=== PATIENT | male | born 1945 | race Caucasian/White ===

== ENCOUNTER 2023-02-20 11:04 | Inpatient (IN) ==
[2023-02-20] MEDS ORDERED: IOPAMIDOL 100 ML BOTTLE IV ONE (11:05)
[2023-02-20] MEDS ORDERED: 0.9 % SODIUM CHLORIDE 1,000 ML IV ONE ×2 (11:47→22:02)
--- NOTE | 2023-02-20 11:58 | Emergency Department Note ---
Weakness HPI General Chief complaint: Weakness Stated complaint: hypotension, tachycardia, general decline, Time Seen by Provider: 02/20/23 11:12 Source: patient and EMS Mode of arrival: EMS History of Present Illness HPI Narrative: The patient is a 77-year-old male with a history of prostate cancer, malnutrition/anorexia/failure to thrive, CKD, urinary retention with a Schrader catheter who presents to the ED with hypotension and tachycardia. Patient was being seen at the surgery clinic this morning for follow-up for colonoscopy and to discuss proceeding with an EGD where he was found to have a blood pressure of 87/58 and heart rate of 116. He was sent to the emergency room via EMS for further evaluation. Patient complains of generalized weakness, especially in his legs. He reports a poor appetite. Looks like the weakness and poor appetite have been a chronic issue for the patient as of late. He was recently hospitalized at [facility] for syncope and sepsis secondary to colitis. He has been rehabilitating at [facility]. He does report a headache as well as chronic back pain and states that his stomach feels "weird." He denies any palpitations or dysuria. He continues to report brown diarrhea which he states has been present ever since his recent hospitalization for colitis. No melena. Hematochezia. No fevers. Related Data Home Medications Medication Instructions Recorded Confirmed loratadine 10 mg tablet (Claritin) 10 mg PO QDAY PRN ALLERGIES 05/01/22 02/20/23 Miralax 1 packet PO DAILY PRN Constipation 02/20/23 02/20/23 Huddy 7.5 - 325 mg PO Q8 PRN Pain 02/20/23 02/20/23 Reglan 5 mg PO TID 02/20/23 02/20/23 Tenormin 12.5 mg PO DAILY 02/20/23 02/20/23 bisacodyl 10 mg rectal suppository 10 mg [place] DAILY PRN Constipation 02/20/23 02/20/23 (Dulcolax (bisacodyl)) duloxetine 60 mg capsule,delayed 60 mg PO QDAY 02/20/23 02/20/23 release ipratropium bromide 1 spray intranasal DAILY 02/20/23 02/20/23 lisinopril 40 mg tablet 20 mg PO QDAY 02/20/23 02/20/23 mineral oil (Fleet Mineral Oil 1 ea [place] DAILY 02/20/23 02/20/23 enema) ondansetron HCl 4 mg tablet 4 mg PO Q6 02/20/23 02/20/23 potassium chloride 20 meq PO DAILY 02/20/23 02/20/23 tamsulosin 0.4 mg capsule 0.4 mg PO QDAY 02/20/23 02/20/23 Previous Rx's Medication Instructions Recorded clonazepam 0.5 mg tablet 0.5 mg PO QHS #30 tabs 12/26/22 Allergies Allergy/AdvReac Type Severity Reaction Status Date / Time olanzapine Allergy Unknown restlessnes Verified 02/20/23 14:14 s Penicillins Allergy Unknown sick Verified 02/20/23 14:14 stomach Sulfa (Sulfonamide Allergy Unknown Vomiting Verified 02/20/23 14:14 Antibiotics) Review of Systems ROS ROS Narrative: Narrative: All systems ED: reviewed and negative except as stated. (10 point ROS) PFSH Narrative Patient History Narrative: Narrative: Medical/Surgical/Family History All Active Problems (Updated 02/20/23 @ 20:07 by Jaison Nicolas MD) Colitis (Acute) ABLA (acute blood loss anemia) (Acute) Dehydration determined by examination (Acute) Orthostatic hypotension (Acute) Hypertension (Acute) Anemia in chronic kidney disease (Acute) Chronic kidney disease, stage III (moderate) (Acute) Homocystinuria (Acute) Hydronephrosis (Acute) Hypocalcemia (Acute) Obstructive nephropathy (Acute) Prostate cancer (Chronic) Renal osteodystrophy (Acute) Methicillin susceptible Staphylococcus aureus infection (Acute) Ureteric obstruction (Acute) Vitamin D deficiency (Acute) History of bladder surgery (Acute ~2012) History of prostate surgery (Chronic ~2012) History of hernia repair (Acute ~2012) Medicare annual wellness visit, subsequent (Acute) Mood disorder (Acute) Delusions (Acute) Depression with anxiety (Acute) History of skin cancer (Acute) Skin cancer (Acute) Folic acid deficiency (Acute) Cobalamin deficiency (Acute) Easy bruising (Acute) Fatigue (Acute) Medication management (Acute) Stage 3b chronic kidney disease (Acute) Cerumen impaction (Acute) Delusions of parasitosis (Acute) CVA (cerebral vascular accident) (Acute) Generalized anxiety disorder (Acute) Memory deficit after cerebrovascular disease (Acute) 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) Insomnia (Acute) OCD (obsessive compulsive disorder) (Acute) Hypersomnia (Acute) CKD stage G3b/A1, GFR 30-44 and albumin creatinine ratio <30 mg/g (Chronic) Vitamin D deficiency (Acute) On terminal makeup operator drug therapy (Acute) Memory changes (Acute) Hyperglycemia (Acute) Hyperglycemia (Acute) Somatic symptom disorder (Acute) Encounter for colorectal cancer screening (Acute) Osteoarthritis cervical spine (Acute) Paranoid ideation (Acute) Positive colorectal cancer screening using Cologuard test (Acute) Major depression with psychotic features (Acute) Delusional disorder (Acute) Weight loss (Acute) Reflux gastritis (Acute) Failure to thrive syndrome, adult (Acute) Urinary retention (Chronic) History of prostate cancer (Acute) Horseshoe kidney (Chronic) Renal insufficiency (Acute) Thrush (Acute) Anorexia (Acute) Nephrolithiasis (Chronic) Dorsalgia of thoracolumbar region (Acute) Constipation (Acute) Dysuria (Acute) Age-related osteoporosis without current pathological fracture (Acute) Malnutrition (Acute) Skin lesion of right upper extremity (Acute) Postnasal drip (Acute) Left eye pain (Acute) Cataracts, bilateral (Acute) Frequent headaches (Acute) Low back pain (Acute) Skin lesion of hand (Acute) Acute URI (Acute) Bilious vomiting (Acute) Elevated procalcitonin (Acute) Hypotension (Acute) Dehydration (Acute) Medical History Abn react-urinary cath Acute URI Age-related osteoporosis without current pathological fracture Altered mental status Anemia in chronic kidney disease Anorexia Anterior epistaxis Anxiety disorder Bilious vomiting Cataracts, bilateral Chest pressure Chronic kidney disease, stage III (moderate) Chronic sinusitis Cobalamin deficiency Constipation Dehydration Delusions of parasitosis Disturbance of skin sensation Dorsalgia of thoracolumbar region Easy bruising Elevated BP without diagnosis of hypertension Elevated procalcitonin Encounter for colorectal cancer screening Episodic weakness Failure to thrive syndrome, adult Fatigue Fatigue Folic acid deficiency Frequent headaches Homocystinuria Hydronephrosis Hypertension Hypocalcemia Hypotension Itching Left eye pain Left thigh pain Low back pain Malnutrition Medicare annual wellness visit, subsequent Memory changes Methicillin susceptible Staphylococcus aureus infection Obstructive nephropathy Osteoarthritis cervical spine Postnasal drip Pre-op evaluation Prostate cancer Reflux gastritis Renal osteodystrophy Shaking Sinusitis Skin cancer Skin lesion of hand Skin lesion of right upper extremity Somatic symptom disorder Tachycardia Thrush Tinea pedis Unable to pass flatus Ureteric obstruction Urinary retention Urinary tract infection Vitamin D deficiency Weakness Weight loss Surgical History History of bladder surgery (~2012) Transurethral resection of bladder neoplasm History of hernia repair (~2012) Double History of prostate surgery (~2012) Family History Daughter Celiac disease Son Gastroesophageal reflux Social History Smoking Status: Never smoker Alcohol Intake Frequency: does not drink Substance Use: does not use Exam Narrative Narrative: Constitutional: Thin. No acute distress. HEENT: Normocephalic. Atraumatic. EOMI. Conjunctive are clear bilaterally. OP clear. Uvula midline. Moist mucous membranes. Cardiovascular: Regular rate and rhythm. No murmurs, rubs, gallops. Pulmonary: No increased work of breathing. Lung sounds clear to auscultation bilaterally. No wheezing, rales, or rhonchi. Abdomen: Soft, nondistended. Patient reports mild discomfort with palpation over the suprapubic region. No guarding. No HSM. Genitourinary: Schrader catheter in place Musculoskeletal: Normal muscular development. No obvious deformities. Trace lower extremity edema. Skin: Warm, dry. No rash. Neurologic: Awake, alert, and oriented. Motor function grossly intact. Afocal. Course Course Course Narrative: Blood pressures on arrival noted to be in the low 100s, systolic. Heart rate was initially mildly elevated into the low 100s. He was given 1 L NS with improvement in blood pressure and resolution of tachycardia. Labs reviewed and are notable for a hemoglobin of 7.2. Hemoglobin 3 weeks ago was 11.4. Hemoccult is positive. A CT angiogram was obtained of the abdomen/pelvis which shows findings consistent with known colitis as well as changes around the rectum consistent with previous radiation versus rectal cancer. Patient did have a colonoscopy 1 year ago which did not show any rectal cancer. Case discussed with Dr. Baez who also discussed the case with Dr. Ballard with [facility] who did not recommend colonoscopy or surgical intervention at this time given patient's ongoing colitis. Patient given 2 units packed RBCs. His medical records from [facility] from 3 weeks ago were reviewed and his enteric pathogen panel was negative. His stool and blood cultures were also negative. C. difficile was negative.The patient is not anticoagulated though INR is mildly elevated at 1.5. Platelets are 100. LFTs are WNL. WBC 4.2. Lactic acid WNL. Case discussed with GI, Dr. Alas at [facility] recommended IV fluid resuscitation, blood transfusions, and IV antibiotics as well as consideration of possible offending agents that might be causing recurrent colitis such as Sudafed, Zofran, SSRIs, migraine medications. It was not recommended that patient transfer acutely to a facility with GI unless he has continued blood loss or deterioration. I spoke again with Dr. Bañuelos, hospitalist here and relayed the recommendations from GI who accepts patient for admission. Consultations Consultation #1: Dr. Baez with general surgery Time: 17:00 Consultation #2: jameel Schraderist Time: 17:30 Consultation #3: Dr. Alas with GI at [facility] Time: 19:45 Vital Signs Vital signs: Vital Signs Pulse Rate 101 H 02/20/23 11:04 Respiratory Rate 14 02/20/23 11:04 Blood Pressure 106/80 02/20/23 11:04 Pulse Oximetry (%) 97 02/20/23 11:04 Oxygen Delivery Method Room Air 02/20/23 11:04 Temperature 97.1 F 02/20/23 18:24 Pulse Rate 85 02/20/23 19:31 Respiratory Rate 13 02/20/23 19:31 Blood Pressure 143/91 02/20/23 19:31 Pulse Oximetry (%) 99 02/20/23 19:31 Oxygen Delivery Method Room Air 02/20/23 11:04 [facility] MDM Narrative Medical decision making narrative: Narrative: Differential Diagnosis Differential Diagnosis: Infectious versus infectious colitis, upper GI bleed, mesenteric ischemia Medical Records Medical records reviewed: Yes I reviewed the patient's medical records. Medical records narrative: See ED course above Lab Data Lab results reviewed: Yes I reviewed the patient's lab results. 02/20/23 12:28 02/20/23 14:37 Labs: Lab Results 02/20/23 02/20/23 02/20/23 Range/Units 12:28 12:28 12:28 WBC 4.2 L (4.5-11.0) K/mcL RBC 2.35 L (4.63-6.08) M/mcL Hgb 7.2 L (13.7-17.5) g/dL Hct 23.4 L (40.1-51.0) % POC Hct (41-55) MCV 99.6 (80.0-100.0) fL MCH 30.6 (26.0-34.0) pg MCHC 30.8 L (31.0-36.0) g/dL RDW 16.6 H (11.5-14.5) % Plt Count 100 L (140-440) K/mcL MPV 13.0 H (8.8-12.5) fL Immature Gran % (Auto) 1.4 H (0.0-0.5) % Neut % (Auto) 62.8 (38.0-78.0) % Lymph % (Auto) 20.7 (15.5-49.0) % [place] % (Auto) 13.5 H (1.0-12.0) % Eos % (Auto) 1.4 (0.0-7.0) % Baso % (Auto) 0.2 (0.0-2.0) % Lymph # (Auto) 0.86 L (1.50-4.80) K/mcL [place] # (Auto) 0.56 (0.10-0.90) K/mcL Eos # (Auto) 0.06 (0.00-0.70) K/mcL Baso # (Auto) 0.01 (0.00-0.30) K/mcL Immature Gran # 0.06 H (0.00-0.05) K/mcl Absolute Neutrophils 2.60 (1.80-8.00) K/mcL POC PT (11.9-14.5) POC INR (0.8-1.2) VBG Lactic Acid 1.5 (0.5-2.0) mmol/L POC Sodium (133-145) Sodium TNP POC Potassium (3.3-5.1) Potassium TNP POC Chloride (96-108) Chloride TNP Carbon Dioxide TNP POC Total CO2 (22-30) Anion Gap TNP POC BUN (6-20) BUN TNP Creatinine TNP POC Creatinine (0.6-1.2) GFR Calculation TNP Glucose TNP POC Glucose (70-105) Calcium TNP POC WB Ioniz Calcium (1.16-1.32) Total Bilirubin < 0.2 TNP (0.1-1.0) mg/dL Direct Bilirubin < 0.2 (0-0.3) mg/dL AST 12 TNP (<40) U/L ALT 8 TNP (<40) U/L Alkaline Phosphatase 54 TNP (39-117) U/L Total Protein 2.6 L TNP (5.9-8.4) gm/dL Albumin 1.2 L TNP (3.2-5.2) gm/dL Globulin 1.4 L TNP (2.2-3.7) gm/dL Albumin/Globulin Ratio TNP Lipase 20 (7-60) U/L Urine Color Urine Appearance (Clear) Urine pH (5.0-9.0) Ur Specific [place] (1.000-1.035) Urine Protein (Negative) mg/dL Urine Glucose (UA) (Negative) mg/dL Urine Ketones (Negative) mg/dL Urine Occult Blood (Negative) mg/dL Urine Nitrate (Negative) Urine Bilirubin (Negative) mg/dL Urine Urobilinogen mg/dL Ur Leukocyte Esterase (Negative) /uL Urine RBC (0-3) /hpf Urine WBC (0-4) /hpf Ur Squamous Epith Cells (0-4) /hpf Ur Transition Epith Cell (0-2) /hpf Urine Bacteria (0) /hpf Urine Mucus (None) /hpf Ur Culture Indicated? POC Troponin I (0.00-0.08) 02/20/23 02/20/23 02/20/23 Range/Units 12:29 12:32 13:58 WBC (4.5-11.0) K/mcL RBC (4.63-6.08) M/mcL Hgb (13.7-17.5) g/dL Hct (40.1-51.0) % POC Hct 20.0 L* 27.0 L (41-55) MCV (80.0-100.0) fL MCH (26.0-34.0) pg MCHC (31.0-36.0) g/dL RDW (11.5-14.5) % Plt Count (140-440) K/mcL MPV (8.8-12.5) fL Immature Gran % (Auto) (0.0-0.5) % Neut % (Auto) (38.0-78.0) % Lymph % (Auto) (15.5-49.0) % [place] % (Auto) (1.0-12.0) % Eos % (Auto) (0.0-7.0) % Baso % (Auto) (0.0-2.0) % Lymph # (Auto) (1.50-4.80) K/mcL [place] # (Auto) (0.10-0.90) K/mcL Eos # (Auto) (0.00-0.70) K/mcL Baso # (Auto) (0.00-0.30) K/mcL Immature Gran # (0.00-0.05) K/mcl Absolute Neutrophils (1.80-8.00) K/mcL POC PT (11.9-14.5) POC INR (0.8-1.2) VBG Lactic Acid (0.5-2.0) mmol/L POC Sodium 144 135 (133-145) Sodium POC Potassium 2.3 L* 4.1 (3.3-5.1) Potassium POC Chloride 110 H 96 (96-108) Chloride Carbon Dioxide POC Total CO2 17.0 L 27.0 (22-30) Anion Gap POC BUN 5 L 10 (6-20) BUN Creatinine POC Creatinine 0.6 1.3 H (0.6-1.2) GFR Calculation Glucose POC Glucose 58 L 86 (70-105) Calcium POC WB Ioniz Calcium 0.70 L* 0.95 L (1.16-1.32) Total Bilirubin (0.1-1.0) mg/dL Direct Bilirubin (0-0.3) mg/dL AST (<40) U/L ALT (<40) U/L Alkaline Phosphatase (39-117) U/L Total Protein (5.9-8.4) gm/dL Albumin (3.2-5.2) gm/dL Globulin (2.2-3.7) gm/dL Albumin/Globulin Ratio Lipase (7-60) U/L Urine Color Urine Appearance (Clear) Urine pH (5.0-9.0) Ur Specific [place] (1.000-1.035) Urine Protein (Negative) mg/dL Urine Glucose (UA) (Negative) mg/dL Urine Ketones (Negative) mg/dL Urine Occult Blood (Negative) mg/dL Urine Nitrate (Negative) Urine Bilirubin (Negative) mg/dL Urine Urobilinogen mg/dL Ur Leukocyte Esterase (Negative) /uL Urine RBC (0-3) /hpf Urine WBC (0-4) /hpf Ur Squamous Epith Cells (0-4) /hpf Ur Transition Epith Cell (0-2) /hpf Urine Bacteria (0) /hpf Urine Mucus (None) /hpf Ur Culture Indicated? POC Troponin I < 0.02 (0.00-0.08) 02/20/23 02/20/23 02/20/23 Range/Units 14:37 14:46 14:57 WBC (4.5-11.0) K/mcL RBC (4.63-6.08) M/mcL Hgb (13.7-17.5) g/dL Hct (40.1-51.0) % POC Hct (41-55) MCV (80.0-100.0) fL MCH (26.0-34.0) pg MCHC (31.0-36.0) g/dL RDW (11.5-14.5) % Plt Count (140-440) K/mcL MPV (8.8-12.5) fL Immature Gran % (Auto) (0.0-0.5) % Neut % (Auto) (38.0-78.0) % Lymph % (Auto) (15.5-49.0) % [place] % (Auto) (1.0-12.0) % Eos % (Auto) (0.0-7.0) % Baso % (Auto) (0.0-2.0) % Lymph # (Auto) (1.50-4.80) K/mcL [place] # (Auto) (0.10-0.90) K/mcL Eos # (Auto) (0.00-0.70) K/mcL Baso # (Auto) (0.00-0.30) K/mcL Immature Gran # (0.00-0.05) K/mcl Absolute Neutrophils (1.80-8.00) K/mcL POC PT 17.9 H (11.9-14.5) POC INR 1.5 H (0.8-1.2) VBG Lactic Acid (0.5-2.0) mmol/L POC Sodium (133-145) Sodium 134 POC Potassium (3.3-5.1) Potassium 4.0 POC Chloride (96-108) Chloride 101 Carbon Dioxide 28 POC Total CO2 (22-30) Anion Gap 5.0 L POC BUN (6-20) BUN 10 Creatinine 1.0 POC Creatinine (0.6-1.2) GFR Calculation 72 Glucose 87 POC Glucose (70-105) Calcium 6.5 L POC WB Ioniz Calcium (1.16-1.32) Total Bilirubin 0.2 (0.1-1.0) mg/dL Direct Bilirubin (0-0.3) mg/dL AST 18 (<40) U/L ALT 13 (<40) U/L Alkaline Phosphatase 83 (39-117) U/L Total Protein 4.1 L (5.9-8.4) gm/dL Albumin 1.9 L (3.2-5.2) gm/dL Globulin 2.2 (2.2-3.7) gm/dL Albumin/Globulin Ratio 0.9 L Lipase (7-60) U/L Urine Color Yellow Urine Appearance Clear (Clear) Urine pH 7.0 (5.0-9.0) Ur Specific [place] 1.012 (1.000-1.035) Urine Protein Negative (Negative) mg/dL Urine Glucose (UA) Negative (Negative) mg/dL Urine Ketones Negative (Negative) mg/dL Urine Occult Blood Negative (Negative) mg/dL Urine Nitrate Negative (Negative) Urine Bilirubin Negative (Negative) mg/dL Urine Urobilinogen Negative mg/dL Ur Leukocyte Esterase 75 A (Negative) /uL Urine RBC 2 (0-3) /hpf Urine WBC 5 H (0-4) /hpf Ur Squamous Epith Cells 0 (0-4) /hpf Ur Transition Epith Cell < 1 (0-2) /hpf Urine Bacteria Few A (0) /hpf Urine Mucus Few A (None) /hpf Ur Culture Indicated? Yes POC Troponin I (0.00-0.08) Radiology Data Radiology results reviewed: Yes I reviewed the patient's radiology results. Radiology results narrative: See ED course above. Patient's head CT (which he requested) was also negative for acute pathology. EKG Data EKG #1: EKG attestation: Yes I reviewed and interpreted this EKG. EKG results narrative: Sinus rhythm. Rate 88. Normal axis. No ST elevation or depression. Low QRS voltage. Normal T waves. CC TIME Critical Care Time Critical Care Time: Yes Total Critical Care Time: 40 Attestation: Due to a high probability of clinically significant, life threatening deterioration, the patient required my highest level of preparedness to interve ne emergently and I personally spent this critical care time directly and personally managing the patient. This critical care time included obtaining a history; examining the patient; pulse oximetry; ordering and review of studies; arranging urgent treatment with development of a management plan; evaluation of patient's response to treatment; frequent reassessment; and, discussions with other providers. Discharge Plan Patient/Caregiver Discharge Instructions Pt seen by [facility]/PA only: No Clinical Impression: Colitis, ABLA (acute blood loss anemia) Patient Disposition: Xfer As Inpt ([facility]) Condition: Fair Follow up with: Patel Jacob MD [Primary Care Provider] - Prescriptions: No Action clonazepam 0.5 mg tablet 0.5 mg PO QHS Qty: 30 1RF loratadine [Claritin] 10 mg Tablet 10 mg PO QDAY PRN (Reason: ALLERGIES) ondansetron HCl 4 mg Tablet 4 mg PO Q6 tamsulosin 0.4 mg capsule 0.4 mg PO QDAY mineral oil [Fleet Mineral Oil] Enema 1 ea [place] DAILY bisacodyl [Dulcolax (bisacodyl)] 10 mg Suppository 10 mg [place] DAILY PRN (Reason: Constipation) duloxetine 60 mg capsule,delayed release(DR/EC) 60 mg PO QDAY Miralax 1 packet PO DAILY PRN (Reason: Constipation) Huddy 7.5 - 325 mg PO Q8 PRN (Reason: Pain) Reglan 5 mg PO TID Tenormin 12.5 mg PO DAILY ipratropium bromide 1 spray intranasal DAILY potassium chloride 20 meq PO DAILY lisinopril 40 mg tablet 20 mg PO QDAY
--- NOTE | 2023-02-20 12:08 | XRay Report ---
HISTORY: None. FINDINGS: The lungs are clear and well expanded. The heart size, pulmonary vasculature, mediastinum, georgette and pleura are normal. There are few old healed posterolateral rib fractures in the right lower thorax. Mild arthritis is present in the right acromioclavicular joint. There has been little change since 05/01/22. IMPRESSION: No acute abnormality Interpreted and Authenticated by: Reji Triana 02/20/23
[2023-02-20 12:32] LABS: POC Calcium, Ionized 0.7 (1.16-1.32); POC Creatinine 0.6 (0.6-1.2); POC Potassium 2.3 (3.3-5.1)
[2023-02-20 13:36] LABS: Basophils # (Auto) 0.01 K/mcL (0.00-0.30); Basophils % (Auto) 0.2 % (0.0-2.0); Eosinophils # (Auto) 0.06 K/mcL (0.00-0.70); Eosinophils % (Auto) 1.4 % (0.0-7.0); Hematocrit 23.4 % (40.1-51.0); Hemoglobin 7.2 g/dL (13.7-17.5); Lymphocytes # (Auto) 0.86 K/mcL (1.50-4.80); Lymphocytes % (Auto) 20.7 % (15.5-49.0); Mean Cell Volume 99.6 fL (80.0-100.0); Mean Corpuscular HGB Conc 30.8 g/dL (31.0-36.0); Monocytes # (Auto) 0.56 K/mcL (0.10-0.90); Monocytes % (Auto) 13.5 % (1.0-12.0); Neutrophils % (Auto) 62.8 % (38.0-78.0); Platelet Count 100 K/mcL (140-440); RBC 2.35 M/mcL (4.63-6.08); Red Cell Distribution Width 16.6 % (11.5-14.5); WBC 4.2 K/mcL (4.5-11.0)
[2023-02-20 13:40] LABS: ALT/SGPT 8 U/L (<40); AST/SGOT 12 U/L (<40); Albumin 1.2 gm/dL (3.2-5.2); Alkaline Phosphatase 54 U/L (39-117); Bilirubin,Direct < 0.2 mg/dL (0-0.3); Bilirubin,Total < 0.2 mg/dL (0.1-1.0); Globulin 1.4 gm/dL (2.2-3.7)
[2023-02-20 14:01] LABS: POC Calcium, Ionized 0.95 (1.16-1.32); POC Creatinine 1.3 (0.6-1.2); POC Potassium 4.1 (3.3-5.1)
[2023-02-20] MEDS ORDERED: 0.9 % SODIUM CHLORIDE 250 ML IV SCH (14:30)
[2023-02-20 15:00] LABS: POC INR 1.5 (0.8-1.2); POC Pro Time 17.9 (11.9-14.5)
[2023-02-20 15:45] LABS: Appearance,Urine CLEAR (Clear); Bacteria,Urine FEW /hpf (0); Bilirubin,Urine Negative (Negative); Color,Urine YELLOW; Culture Indicated,Urine Yes; Glucose,Urine (UA) Negative (Negative); Ketones,Urine Negative (Negative); Leukocyte Esterase,Urine 75 /uL (Negative); Mucus,Urine FEW /hpf; Nitrate,Urine Negative (Negative); Protein,Urine Negative (Negative); Specific Gravity,Urine 1.012 (1.000-1.035); Urine Blood Negative (Negative); Urine RBC 2 /hpf (0-3); Urine Squamous Epithelial Cell 0 /hpf (0-4); Urine Transitional Epi Cells < 1 /hpf (0-2); Urine WBC 5 /hpf (0-4); Urobilinogen,Urine Negative
--- NOTE | 2023-02-20 15:47 | Cat Scan Report ---
History: Anemia, positive Hemoccult test, hypertension with tachycardia, prior prostate cancer, recently treated for colitis TECHNIQUE: The abdomen was first imaged without contrast. Intravenous nonionic contrast was injected. Arterial phase images were acquired from above the diaphragm through the symphysis pubis. Venous phase images were then created. The sagittal, coronal and MIPS images were created. Radiation exposure was limited using dose reduction technology. FINDINGS: The lung bases are clear. The liver and spleen are normal in size and homogeneous. The gallbladder is partially contracted. There are no calcified stones within the lumen and the bile ducts are nondilated. No mass or inflammation are present in the pancreas. There are few varices around the left adrenal gland. There is no radiographic evidence of cirrhosis. The portal vein appears normal. There is mild hyperplasia of the left adrenal. The right adrenal is normal. Patient has a horseshoe kidney. There is no hydronephrosis or renal mass. In the band connecting the two kidneys there is a 3 mm nonobstructing stone. The aorta is normal in caliber. There is very mild plaque formation in the mid and distal aorta. There is no aneurysm or dissection. The celiac, superior mesenteric and inferior mesenteric arteries are normal. Renal arteries are normal caliber without evidence of stenosis. The common, internal and external iliacs are also normal in caliber but somewhat tortuous. There is no evidence of active bleeding into the lumen of the bowel. There is a large amount of fecal material from the cecum to the splenic flexure. The descending and sigmoid colon are decompressed. The wall of the proximal descending colon is mildly thickened and inflamed and there is mild stranding of the surrounding fat. The wall measures up to 7.6 mm. There are no diverticula in this region. There are a few noninflamed diverticula in the sigmoid colon. Small intestine is normal. The stomach contains a small amount of liquid but is otherwise normal. There is asymmetric abnormal thickening of the wall of the rectum. Along the left side the wall measures 2.4 cm. This is causing distortion of the lumen. This is a new finding since 08/23/21. Prostate is small and there are fiducial markers following prior radiation therapy. A Schrader catheter is present within the decompressed urinary bladder. No adenopathy or ascites are present. Bone windows show no lytic or blastic metastasis. IMPRESSION: Concentric thickening of the wall of the proximal descending colon. The appearance suggests colitis. Asymmetric thickening of the wall of the rectum. This could be a rectal cancer or post radiation change. Horseshoe kidney with a nonobstructing calculus Normal aorta Dr. Larose was called with the report Interpreted and Authenticated by: Reji Triana 02/20/23
[2023-02-20 15:49] LABS: ALT/SGPT 13 U/L (<40); AST/SGOT 18 U/L (<40); Albumin 1.9 gm/dL (3.2-5.2); Albumin/Globulin Ratio 0.9 (1.0-2.3); Alkaline Phosphatase 83 U/L (39-117); Bilirubin,Total 0.2 mg/dL (0.1-1.0); Blood Urea Nitrogen 10 mg/dL (8-23); Calcium 6.5 mg/dL (8.6-10.4); Carbon Dioxide 28 mmol/L (22-30); Chloride 101 mmol/L (96-108); Globulin 2.2 gm/dL (2.2-3.7); Glomerular Filtration Rate 72; Glucose 87 mg/dL (70-105)
--- NOTE | 2023-02-20 16:23 | Cat Scan Report ---
History: Headache, hypertension, tachycardia TECHNIQUE: The brain was imaged without contrast in axial plane at 2.5 mm intervals. Sagittal and coronal reformats were created. The radiation exposure was limited using dose reduction technology. FINDINGS: There is residual contrast in the blood pool following the preceding abdomen CT scan no vascular anomaly is detected and there is no abnormal enhancement in the brain. There are mild age-related degenerative changes with mild atrophy above and below the tentorium. There is no evidence of an infarct, hemorrhage or mass. Ventricles are normal in size. There is no abnormal extra-axial fluid collection. Bone windows show no skull lesion. Visualized sinuses are clear. Comparison with the prior head CT done on 09/02/20 shows no change. IMPRESSION: Mild atrophy but otherwise normal exam Dr. Larose was called with the report Interpreted and Authenticated by: Reji Triana 02/20/23
[2023-02-20] MEDS ORDERED: DEXTROSE 50% 50 ML VIAL IV ONE (19:30)
[2023-02-20] MEDS ORDERED: DEXTROSE 50% 50 ML SYRINGE IV ONE (19:42)
[2023-02-20] MEDS ORDERED: PIPERACILLIN SODIUM/TAZOBACTAM 3.375 GM in DEXTROSE 5% IN WATER 50 ML IV ONE (20:07)
--- NOTE | 2023-02-20 20:43 | Internal Med History&Physical ---
HPI History of Present Illness Patient information: Note initiated : 02/20/23 at 8:05 pm Service Date, if different from initiated Date: [] Patient: Wm Conte a 77 y/o M admitted on for hypotension, tachycardia, general decline,. Chief Complaint: [] History of present illness: Mr. Conte is a 77 year old M Presents to the ED from Dr. Ballard's office for evaluation for EGD and colonoscopy. Hypotension most notably hypotension and tachycardia. The concern that he was dehydrated severely and sent to the ED. Work-up in the ED revealed a hemoglobin of 7.2 which was A significant drop from his baseline. Also feels significantly weaker. Patient states his bowel movements have been light brown but patient does have vascular dementia and is seems to be a poor historian. He says yes 1-2 episodes of diarrhea per day and that it is better from when he was at [facility]. Patient feels he does have poor oral intake. He was admitted at [facility] in January and treated for colitis and treated with round of IV antibiotics and got several units of blood there he also treated for acute kidney injury acute urinary retention and has a Cheema placed at this time supposed to follow-up with urology. He was also treated for metabolic ence phalopathy. Apparently stool studies were unremarkable at [facility]. Patient denies any nausea vomiting chest pain shortness of breath headache fever chills. Patient does admit a little bit of lightheadedness. He states he has some lower abdominal pressure but no real pain. In the ED patient was given IV fluids and antibiotics. With IV fluids blood pressure improved. In the ED he had a CT abdomen pelvis which showed thickening of the proximal descending colon suggesting colitis and some asymmetrical thickening of the wall of the rectum which was noted to be possibility of cancer or postradiation change. Case was discussed with our surgeon do not feel the patient needed a colonoscopy at this time or any surgical evaluation. This felt the thickening of the rectum was likely postradiation change as he did have a colonoscopy last May. Patient has had diarrhea since early January treated with a round of antibiotics at [facility] as well as having bleeding. Patient still having diarrhea although not as severe still having bleeding. I felt this patient needed a belt maker to evaluate and possibly perform endoscopy. Case was discussed with a belt maker (Dr. Trevñioat on an outside facility ([facility] [place] ) who felt the patient did not need GI intervention including endoscopy and just needed another round of IV antibiotics with IV hydration and a review of any medications to cause diarrhea. I was bit frustrated given the history and the likely need for GI eval or intervention but reluctantly agreed to keep the patient here and will try those empiric treatments including we will do stool studies again. The daughter is quite frustrated as well as this is the second hospitalization in a month for the same thing. My hope is to see improvement enough that we can discharge him and have him follow-up with surgery and GI outpatient. If patient returns at that point again for the same issue without having seen belt maker then patient will need to be transferred to facility that has GI specialist on board. I discussed this with the daughter present at bedside. Patient is started on 2 units of blood in ED as well. Platelets are little low at 100 but they are chronically low. Does have a leukopenia as well. Labs are difficult cold to interpret as the qqhbp-[id number] potassium was 2.3 but the lab draw is 4.1. While a ijyxi-lv-[id number] chloride is 110 and the lab draws 96. A yqffs-rr-orkm creatinine is 1.3 but the lab value was 0.6. Does have hypocalcemia. Albumin quite low at 1.9. Review of Systems: Pertinent positives as above. Denies headache/fever/chills/nausea/vomiting/chest or abdominal pain/cough/dyspnea. Remaining 10 point review of system reviewed negative PHYSICAL EXAM General: Alert, Awake, No acute Distress, frail Eyes/N/T: EOMI, no scleral icterus, PERRL, Head/Neck: neck supple, full ROM, normocephalic atraumatic CV: RRR, No murmurs, normal s1/s2 Pulm: Clear b/l, no wheezing/rhonchi/rales, no respiratory distress Abd: soft, nontender, +BS x4 Ext: no clubbing/cyanosis/edema, nontender Neuro: Alert, no focal deficits, moves all extremities, CN 2-12 grossly intact, sensations intact b/l upper/lower Psychiatric: Skin: warm/dry, normal color PFSH PFSH All Active Problems (Updated 02/20/23 @ 20:07 by Jaison Nicolas MD) Colitis (Acute) ABLA (acute blood loss anemia) (Acute) Dehydration determined by examination (Acute) Orthostatic hypotension (Acute) Hypertension (Acute) Anemia in chronic kidney disease (Acute) Chronic kidney disease, stage III (moderate) (Acute) Homocystinuria (Acute) Hydronephrosis (Acute) Hypocalcemia (Acute) Obstructive nephropathy (Acute) Prostate cancer (Chronic) Renal osteodystrophy (Acute) Methicillin susceptible Staphylococcus aureus infection (Acute) Ureteric obstruction (Acute) Vitamin D deficiency (Acute) History of bladder surgery (Acute ~2012) History of prostate surgery (Chronic ~2012) History of hernia repair (Acute ~2012) Medicare annual wellness visit, subsequent (Acute) Mood disorder (Acute) Delusions (Acute) Depression with anxiety (Acute) History of skin cancer (Acute) Skin cancer (Acute) Folic acid deficiency (Acute) Cobalamin deficiency (Acute) Easy bruising (Acute) Fatigue (Acute) Medication management (Acute) Stage 3b chronic kidney disease (Acute) Cerumen impaction (Acute) Delusions of parasitosis (Acute) CVA (cerebral vascular accident) (Acute) Generalized anxiety disorder (Acute) Memory deficit after cerebrovascular disease (Acute) 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) Insomnia (Acute) OCD (obsessive compulsive disorder) (Acute) Hypersomnia (Acute) CKD stage G3b/A1, GFR 30-44 and albumin creatinine ratio <30 mg/g (Chronic) Vitamin D deficiency (Acute) On terminal manager drug therapy (Acute) Memory changes (Acute) Hyperglycemia (Acute) Hyperglycemia (Acute) Somatic symptom disorder (Acute) Encounter for colorectal cancer screening (Acute) Osteoarthritis cervical spine (Acute) Paranoid ideation (Acute) Positive colorectal cancer screening using Cologuard test (Acute) Major depression with psychotic features (Acute) Delusional disorder (Acute) Weight loss (Acute) Reflux gastritis (Acute) Failure to thrive syndrome, adult (Acute) Urinary retention (Chronic) History of prostate cancer (Acute) Horseshoe kidney (Chronic) Renal insufficiency (Acute) Thrush (Acute) Anorexia (Acute) Nephrolithiasis (Chronic) Dorsalgia of thoracolumbar region (Acute) Constipation (Acute) Dysuria (Acute) Age-related osteoporosis without current pathological fracture (Acute) Malnutrition (Acute) Skin lesion of right upper extremity (Acute) Postnasal drip (Acute) Left eye pain (Acute) Cataracts, bilateral (Acute) Frequent headaches (Acute) Low back pain (Acute) Skin lesion of hand (Acute) Acute URI (Acute) Bilious vomiting (Acute) Elevated procalcitonin (Acute) Hypotension (Acute) Dehydration (Acute) Medical History Abn react-urinary cath Acute URI Age-related osteoporosis without current pathological fracture Altered mental status Anemia in chronic kidney disease Anorexia Anterior epistaxis Anxiety disorder Bilious vomiting Cataracts, bilateral Chest pressure Chronic kidney disease, stage III (moderate) Chronic sinusitis Cobalamin deficiency Constipation Dehydration Delusions of parasitosis Disturbance of skin sensation Dorsalgia of thoracolumbar region Easy bruising Elevated BP without diagnosis of hypertension Elevated procalcitonin Encounter for colorectal cancer screening Episodic weakness Failure to thrive syndrome, adult Fatigue Fatigue Folic acid deficiency Frequent headaches Homocystinuria Hydronephrosis Hypertension Hypocalcemia Hypotension Itching Left eye pain Left thigh pain Low back pain Malnutrition Medicare annual wellness visit, subsequent Memory changes Methicillin susceptible Staphylococcus aureus infection Obstructive nephropathy Osteoarthritis cervical spine Postnasal drip Pre-op evaluation Prostate cancer Reflux gastritis Renal osteodystrophy Shaking Sinusitis Skin cancer Skin lesion of hand Skin lesion of right upper extremity Somatic symptom disorder Tachycardia Thrush Tinea pedis Unable to pass flatus Ureteric obstruction Urinary retention Urinary tract infection Vitamin D deficiency Weakness Weight loss Surgical History History of bladder surgery (~2012) Transurethral resection of bladder neoplasm History of hernia repair (~2012) Double History of prostate surgery (~2012) Family History Daughter Celiac disease Son Gastroesophageal reflux Social History marital status: occupational status: retired smoking status: Never smoker alcohol intake frequency: does not drink substance use type: does not use MEDS/ALLERGIES Home Medications and Allergies Home Medications Medication Instructions Recorded Confirmed Type loratadine 10 mg tablet (Claritin) 10 mg PO QDAY PRN ALLERGIES 05/01/22 02/20/23 History clonazepam 0.5 mg tablet 0.5 mg PO QHS #30 tabs 12/26/22 02/20/23 Rx Miralax 1 packet PO DAILY PRN Constipation 02/20/23 02/20/23 History [place] 7.5 - 325 mg PO Q8 PRN Pain 02/20/23 02/20/23 History Reglan 5 mg PO TID 02/20/23 02/20/23 History Tenormin 12.5 mg PO DAILY 02/20/23 02/20/23 History bisacodyl 10 mg rectal suppository 10 mg ND DAILY PRN Constipation 02/20/23 02/20/23 History (Dulcolax (bisacodyl)) duloxetine 60 mg capsule,delayed 60 mg PO QDAY 02/20/23 02/20/23 History release ipratropium bromide 1 spray intranasal DAILY 02/20/23 02/20/23 History lisinopril 40 mg tablet 20 mg PO QDAY 02/20/23 02/20/23 History mineral oil (Fleet Mineral Oil 1 ea ND DAILY 02/20/23 02/20/23 History enema) ondansetron HCl 4 mg tablet 4 mg PO Q6 02/20/23 02/20/23 History potassium chloride 20 meq PO DAILY 02/20/23 02/20/23 History tamsulosin 0.4 mg capsule 0.4 mg PO QDAY 02/20/23 02/20/23 History Allergies Allergy/AdvReac Type Severity Reaction Status Date / Time olanzapine Allergy Unknown restlessnes Verified 02/20/23 14:14 s Penicillins Allergy Unknown sick Verified 02/20/23 14:14 stomach Sulfa (Sulfonamide Allergy Unknown Vomiting Verified 02/20/23 14:14 Antibiotics) EXAM Constitutional Vitals: Temp Pulse Resp BP Pulse Ox O2 Del Method 97.1 F 85 13 143/91 99 Room Air 02/20/23 18:24 02/20/23 19:31 02/20/23 19:31 02/20/23 19:31 02/20/23 19:31 02/20/23 11:04 DATA Data Completed and Pending Labs: Labs from last 24 hours 02/20/23 02/20/23 02/20/23 14:57 14:46 14:37 WBC RBC Hgb Hct POC Hct MCV MCH MCHC RDW Plt Count MPV Immature Gran % (Auto) Neut % (Auto) Lymph % (Auto) [place] % (Auto) Eos % (Auto) Baso % (Auto) Lymph # (Auto) [place] # (Auto) Eos # (Auto) Baso # (Auto) Immature Gran # Absolute Neutrophils POC PT 17.9 H POC INR 1.5 H VBG Lactic Acid POC Sodium Sodium 134 POC Potassium Potassium 4.0 POC Chloride Chloride 101 Carbon Dioxide 28 POC Total CO2 Anion Gap 5.0 L POC BUN BUN 10 Creatinine 1.0 POC Creatinine GFR Calculation 72 Glucose 87 POC Glucose Calcium 6.5 L POC WB Ioniz Calcium Total Bilirubin 0.2 Direct Bilirubin AST 18 ALT 13 Alkaline Phosphatase 83 Total Protein 4.1 L Albumin 1.9 L Globulin 2.2 Albumin/Globulin Ratio 0.9 L Lipase Urine Color Yellow Urine Appearance Clear Urine pH 7.0 Ur Specific Anton 1.012 Urine Protein Negative Urine Glucose (UA) Negative Urine Ketones Negative Urine Occult Blood Negative Urine Nitrate Negative Urine Bilirubin Negative Urine Urobilinogen Negative Ur Leukocyte Esterase 75 A Urine RBC 2 Urine WBC 5 H Ur Squamous Epith Cells 0 Ur Transition Epith Cell < 1 Urine Bacteria Few A Urine Mucus Few A Ur Culture Indicated? Yes POC Troponin I 02/20/23 02/20/23 02/20/23 13:58 12:32 12:29 WBC RBC Hgb Hct POC Hct 27.0 L 20.0 L* MCV MCH MCHC RDW Plt Count MPV Immature Gran % (Auto) Neut % (Auto) Lymph % (Auto) [place] % (Auto) Eos % (Auto) Baso % (Auto) Lymph # (Auto) [place] # (Auto) Eos # (Auto) Baso # (Auto) Immature Gran # Absolute Neutrophils POC PT POC INR VBG Lactic Acid POC Sodium 135 144 Sodium POC Potassium 4.1 2.3 L* Potassium POC Chloride 96 110 H Chloride Carbon Dioxide POC Total CO2 27.0 17.0 L Anion Gap POC BUN 10 5 L BUN Creatinine POC Creatinine 1.3 H 0.6 GFR Calculation Glucose POC Glucose 86 58 L Calcium POC WB Ioniz Calcium 0.95 L 0.70 L* Total Bilirubin Direct Bilirubin AST ALT Alkaline Phosphatase Total Protein Albumin Globulin Albumin/Globulin Ratio Lipase Urine Color Urine Appearance Urine pH Ur Specific Anton Urine Protein Urine Glucose (UA) Urine Ketones Urine Occult Blood Urine Nitrate Urine Bilirubin Urine Urobilinogen Ur Leukocyte Esterase Urine RBC Urine WBC Ur Squamous Epith Cells Ur Transition Epith Cell Urine Bacteria Urine Mucus Ur Culture Indicated? POC Troponin I < 0.02 02/20/23 02/20/23 02/20/23 12:28 12:28 12:28 WBC 4.2 L RBC 2.35 L Hgb 7.2 L Hct 23.4 L POC Hct MCV 99.6 MCH 30.6 MCHC 30.8 L RDW 16.6 H Plt Count 100 L MPV 13.0 H Immature Gran % (Auto) 1.4 H Neut % (Auto) 62.8 Lymph % (Auto) 20.7 [place] % (Auto) 13.5 H Eos % (Auto) 1.4 Baso % (Auto) 0.2 Lymph # (Auto) 0.86 L [place] # (Auto) 0.56 Eos # (Auto) 0.06 Baso # (Auto) 0.01 Immature Gran # 0.06 H Absolute Neutrophils 2.60 POC PT POC INR VBG Lactic Acid 1.5 POC Sodium Sodium TNP POC Potassium Potassium TNP POC Chloride Chloride TNP Carbon Dioxide TNP POC Total CO2 Anion Gap TNP POC BUN BUN TNP Creatinine TNP POC Creatinine GFR Calculation TNP Glucose TNP POC Glucose Calcium TNP POC WB Ioniz Calcium Total Bilirubin TNP < 0.2 Direct Bilirubin < 0.2 AST TNP 12 ALT TNP 8 Alkaline Phosphatase TNP 54 Total Protein TNP 2.6 L Albumin TNP 1.2 L Globulin TNP 1.4 L Albumin/Globulin Ratio TNP Lipase 20 Urine Color Urine Appearance Urine pH Ur Specific Anton Urine Protein Urine Glucose (UA) Urine Ketones Urine Occult Blood Urine Nitrate Urine Bilirubin Urine Urobilinogen Ur Leukocyte Esterase Urine RBC Urine WBC Ur Squamous Epith Cells Ur Transition Epith Cell Urine Bacteria Urine Mucus Ur Culture Indicated? POC Troponin I A/P Narrative A/P Narrative: A: *Colitis w/Diarrhea: Undetermined etiology -Per discussion with GI in ED who did not feel patient needed colonoscopy -second hospitalization in less than a month for same thing *GIB: likely 2/2 above -Per discussion with GI in ED who did not feel patient needed colonoscopy -[facility] *Acute blood loss anemia, on chronic: 2/2 above -Did receive blood transfusion while at [facility] as well *Volume depletion w/Orthostatic hypotension: *Hypotension: Resolved in ED with IV fluids. -home ACEI/BB held for past 1-2 days at [facility] for low BP *Thrombocytopenia, chronic: *Leukopenia: *Electrolyte disorder (Hypocalcemia) *CKD II-III: *h/o CVA's: *Vascular dementia: *Severe protein calorie malnutrition: Muscle and fat loss *HTN: Home MIHAI/BB recently held outpatient for low blood pressure *BPH with UR: Cheema placed at [facility] and has not followed up with urology yet *Generalized weakness/deconditioning: *Anxiety: On clonazepam at home P: -Rocephin/Flagyl, -pending stool studies -IVF -monitor H&H, prn transfusion -Check manual differential, inflammatory markers, mag and Phos -Monitor renal function/UOP -Follow-up chemistry and replete electrolytes as needed, f/u Ca -prealbumin -Dietary consult -Home medication reconciliation -pt/ot -CM for placement needs -maintain cheema, f/u with urology outpt -ppx: SCD Time Spent With Patient Time: Total time spent is greater than 50% in coordination of care (as documented) at patient's floor/unit and/or counseling patient: Initial: Total time with patient: Greater than 90 minutes
[2023-02-20] MEDS ORDERED: CALCIUM GLUCONATE 4.65 MEQ/10 ML VIAL IV ONE (20:50)
[2023-02-20 21:42] LABS: Anisocytosis 1+ (None Seen); Band Neutrophils % 2 % (0-10); Eosinophils % (Manual) 1 % (0-7); Hypochromasia 1+ (None Seen); Lymphocytes % 17 % (15-49); Macrocytosis 1+ (None Seen); Monocytes % (Manual) 7 % (1-12); Platelet Estimate NORMAL (Normal); RBC Morphology ABNORMAL (Normal); Segmented Neutrophils % 73 % (38-78)
[2023-02-20] MEDS ORDERED: MAGNESIUM SULFATE 2 GM/50 ML BAG IV SCH (22:02)
[2023-02-20] MEDS ORDERED: MAGNESIUM SULFATE 2 GM/50 ML BAG IV PRN (22:02)
[2023-02-20] MEDS ORDERED: ACETAMINOPHEN 325 MG TABLET PO PRN (22:02)
[2023-02-20] MEDS ORDERED: POTASSIUM CHLORIDE 20 MEQ TABLET PO PRN ×2 (22:02)
[2023-02-20] MEDS ORDERED: POTASSIUM PHOSPHATE 40 MEQ in DEXTROSE 5% IN WATER 500 ML IV SCH (22:02)
[2023-02-20] MEDS ORDERED: hydrALAZINE 20 MG/ML VIAL IV PRN (22:02)
[2023-02-20] MEDS ORDERED: ONDANSETRON 4 MG/2 ML VIAL IV PRN (22:02)
[2023-02-20] MEDS ORDERED: POTASSIUM CHLORIDE 40 MEQ in DEXTROSE 5% IN WATER 500 ML IV PRN (22:02)
[2023-02-20] MEDS ORDERED: IPRATROPIUM/ALBUTEROL 3 ML AMPUL.NEB NEB PRN (22:02)
[2023-02-20] MEDS ORDERED: HYDROCODONE/APAP 7.5/325MG TABLET PO PRN (22:17)
[2023-02-20] MEDS ORDERED: CALCIUM GLUCONATE 4.65 MEQ/10 ML VIAL ONE ×2 (22:24→22:39)
[2023-02-20] MEDS ORDERED: POTASSIUM PHOSPHATE 66 MEQ/15 ML VIAL IV ONE (22:25)
[2023-02-20] MEDS ORDERED: cefTRIAXone 2 GM VIAL ONE (23:03)
[2023-02-20] MEDS: CALCIUM GLUCONATE 4.65 MEQ in DEXTROSE 5% IN WATER 50 ML IV SCH ×2 (23:07→23:42)
[2023-02-20] MEDS: cefTRIAXone 2 GM in DEXTROSE 5% IN WATER 50 ML IV SCH (23:08)
[2023-02-20] MEDS: 0.9 % SODIUM CHLORIDE 10 ML SYRINGE IV SCH (23:12)
[2023-02-20] MEDS: metroNIDAZOLE 500 MG/100 ML BAG IV SCH (23:44)
[2023-02-21] MEDS: metroNIDAZOLE 500 MG/100 ML BAG IV SCH ×3 (06:03→21:20)
[2023-02-21 06:46] LABS: Hematocrit 37.8 % (40.1-51.0); Hemoglobin 12.7 g/dL (13.7-17.5); Mean Cell Volume 91.1 fL (80.0-100.0); Mean Corpuscular HGB Conc 33.6 g/dL (31.0-36.0); Mean Platelet Volume 12.5 fL (8.8-12.5); Platelet Count 171 K/mcL (140-440); RBC 4.15 M/mcL (4.63-6.08); Red Cell Distribution Width 16.2 % (11.5-14.5); WBC 6.8 K/mcL (4.5-11.0)
--- NOTE | 2023-02-21 06:51 | Internal Med Progress Note ---
SUBJECTIVE Subjective Patient information: Note initiated : 02/21/23 at 6:45 am Service Date, if different from initiated Date: [] Patient: Wm Conte a 77 y/o M admitted on 02/20/23 for hypotension, tachycardia, general decline,Colitis. Chief Complaint: [] Interval history: History of present illness: Mr. Conte is a 77 year old M Presents to the ED from Dr. Ballard's office for evaluation for EGD and colonoscopy. Hypotension most notably hypotension and tachycardia. The concern that he was dehydrated severely and sent to the ED. Work-up in the ED revealed a hemoglobin of 7.2 which was A significant drop from his baseline. Also feels significantly weaker. Patient states his bowel movements have been light brown but patient does have vascular dementia and is seems to be a poor historian. He says yes 1-2 episodes of diarrhea per day and that it is better from when he was at [facility]. Patient feels he does have poor oral intake. He was admitted at [facility] in January and treated for colitis and treated with round of IV antibiotics and got several units of blood there he also treated for acute kidney injury acute urinary retention and has a Cheema placed at this time supposed to follow-up with urology. He was also treated for metabolic encephalopathy. Apparently stool studies were unremarkable at [facility]. Patient denies any nausea vomiting chest pain shortness of breath headache fever chills. Patient does admit a little bit of lightheadedness. He states he has some lower abdominal pressure but no real pain. In the ED patient was given IV fluids and antibiotics. With IV fluids blood pressure improved. In the ED he had a CT abdomen pelvis which showed thickening of the proximal descending colon suggesting colitis and some asymmetrical thickening of the wall of the rectum which was noted to be possibility of cancer or postradiation change. Case was discussed with our surgeon do not feel the patient needed a colonoscopy at this time or any surgical evaluation. This felt the thickening of the rectum was likely postradiation change as he did have a colonoscopy last May. Patient has had diarrhea since early January treated with a round of antibiotics at [facility] as well as having bleeding. Patient still having diarrhea although not as severe still having bleeding. I felt this patient needed a avionics mechanic to evaluate and possibly perform endoscopy. Case was discussed with a avionics mechanic (Dr. Treviñoat on an outside facility ([facility] ) who felt the patient did not need GI intervention including endoscopy and just needed another round of IV antibiotics with IV hydration and a review of any medications to cause diarrhea. I was bit frustrated given the history and the likely need for GI eval or intervention but reluctantly agreed to keep the patient here and will try those empiric treatments including we will do stool studies again. The daughter is quite frustrated as well as this is the second hospitalization in a month for the same thing. My hope is to see improvement enough that we can discharge him and have him follow-up with surgery and GI outpatient. If patient returns at that point again for the same issue without having seen avionics mechanic then patient will need to be transferred to facility that has GI specialist on board. I discussed this with the daughter present at bedside. Patient is started on 2 units of blood in ED as well. Platelets are little low at 100 but they are chronically low. Does have a leukopenia as well. Labs are difficult cold to interpret as the otlbm-eh-dfbb potassium was 2.3 but the lab draw is 4.1. While a xojvn-uk-karj chloride is 110 and the lab draws 96. A czlko-de-zbyc creatinine is 1.3 but the lab value was 0.6. Does have hypocalcemia. Albumin quite low at 1.9. 02/21 No diarrhea overnight. Patient says he has difficulty swallowing his food and that is getting stuck. No nausea vomiting. Patient responded well to blood transfusion yesterday. Hypocalcemia. Review of Systems: Pertinent positives as above. Denies headache/fever/chills/nausea/vomiting/chest or abdominal pain/cough/dyspnea. PHYSICAL EXAM General: Alert, Awake, No acute Distress, frail Eyes/N/T: EOMI, no scleral icterus, Head/Neck: neck supple, full ROM, CV: RRR, No murmurs, Pulm: Clear b/l, no wheezing/rhonchi/rales, no respiratory distress Abd: soft, nontender, +BS x4 Ext: no clubbing/cyanosis, mild b/l LE edema, nontender Neuro: Alert, no focal deficits, moves all extremities, sensations intact b/l upper/lower Psychiatric: Skin: warm/dry, normal color Constitutional Vitals: Vital Signs Temp Pulse Resp BP Pulse Ox O2 Del Method 97.1 F 88 16 116/69 98 Room Air 02/21/23 03:19 02/21/23 03:19 02/21/23 03:19 02/21/23 03:19 02/21/23 03:19 02/21/23 03:19 Period Temp Pulse Resp BP Sys/Bonilla Pulse Ox O2 Del Method O2 Flow Rate Last 24 Hr 96.9 F-97.9 F 71-101 12-24 93-150/69-95 96-100 Room Air-Room Air Intake and Output 02/20/23 02/21/23 02/21/23 19:59 03:59 11:59 Intake Total 1000 620 Output Total 300 Balance 1000 320 Weight 55.021 kg Intake & Output: Intake & Output 02/20/23 02/21/23 02/21/23 19:59 03:59 11:59 Intake Total 1000 620 Output Total 300 Balance 1000 320 Weight 55.021 kg Intake: IV 1000 620 Sodium Chloride 0.9% 1,000 ml @ 1000 Wide Open IV BOLUS ONE Rx#: [id number] Sodium Chloride 0.9% 250 ml @ 250 20 mls/hr IV .[id number] [facility] Rx#: [id number] Calcium Gluconate 4.65 Meq In 120 Dextrose 5% in Water 50 ml @ 100 mls/hr IV DAILY@2200,2300 [facility] Rx#:[id number] Zosyn 3.375 gm In Dextrose 5% 50 in Water 50 ml @ 100 mls/hr IV ONCE ONE Rx#:[id number] Rocephin 2 gm In Dextrose 5% in 50 Water 50 ml @ 100 mls/hr IV Q24H [facility] Rx#:[id number] Oral 0 Output: Urine Catheter Amount 300 Other: Urine Appearance Clear Urine Color Yellow Urine Odor Normal OBJ DATA Labs 02/21/23 06:00 02/21/23 06:00 Labs: Abnormal Lab Results 02/20/23 02/20/23 02/20/23 14:57 14:46 14:37 WBC RBC Hgb Hct POC Hct MCHC RDW Plt Count MPV Immature Gran % (Auto) Kemper % (Auto) Lymph # (Auto) Immature Gran # RBC Morphology Hypochromasia Anisocytosis Macrocytosis POC PT 17.9 H POC INR 1.5 H POC Potassium POC Chloride POC Total CO2 Anion Gap 5.0 L POC BUN POC Creatinine POC Glucose Calcium 6.5 L POC WB Ioniz Calcium Phosphorus Magnesium C-Reactive Protein Total Protein 4.1 L Albumin 1.9 L Globulin Albumin/Globulin Ratio 0.9 L Prealbumin Ur Leukocyte Esterase 75 A Urine WBC 5 H Urine Bacteria Few A Urine Mucus Few A 02/20/23 02/20/23 02/20/23 13:58 12:29 12:28 WBC RBC Hgb Hct POC Hct 27.0 L 20.0 L* MCHC RDW Plt Count MPV Immature Gran % (Auto) Kemper % (Auto) Lymph # (Auto) Immature Gran # RBC Morphology Hypochromasia Anisocytosis Macrocytosis POC PT POC INR POC Potassium 2.3 L* POC Chloride 110 H POC Total CO2 17.0 L Anion Gap POC BUN 5 L POC Creatinine 1.3 H POC Glucose 58 L Calcium POC WB Ioniz Calcium 0.95 L 0.70 L* Phosphorus Magnesium C-Reactive Protein Total Protein Albumin Globulin Albumin/Globulin Ratio Prealbumin 8.6 L Ur Leukocyte Esterase Urine WBC Urine Bacteria Urine Mucus 02/20/23 02/20/23 02/20/23 12:28 12:28 12:28 WBC RBC Hgb Hct POC Hct MCHC RDW Plt Count MPV Immature Gran % (Auto) Kemper % (Auto) Lymph # (Auto) Immature Gran # RBC Morphology Abnormal A Hypochromasia 1+ A Anisocytosis 1+ A Macrocytosis 1+ A POC PT POC INR POC Potassium POC Chloride POC Total CO2 Anion Gap POC BUN POC Creatinine POC Glucose Calcium POC WB Ioniz Calcium Phosphorus 2.0 L Magnesium 1.1 L C-Reactive Protein 1.10 H Total Protein 2.6 L Albumin 1.2 L Globulin 1.4 L Albumin/Globulin Ratio Prealbumin Ur Leukocyte Esterase Urine WBC Urine Bacteria Urine Mucus 02/20/23 12:28 WBC 4.2 L RBC 2.35 L Hgb 7.2 L Hct 23.4 L POC Hct MCHC 30.8 L RDW 16.6 H Plt Count 100 L MPV 13.0 H Immature Gran % (Auto) 1.4 H Kemper % (Auto) 13.5 H Lymph # (Auto) 0.86 L Immature Gran # 0.06 H RBC Morphology Hypochromasia Anisocytosis Macrocytosis POC PT POC INR POC Potassium POC Chloride POC Total CO2 Anion Gap POC BUN POC Creatinine POC Glucose Calcium POC WB Ioniz Calcium Phosphorus Magnesium C-Reactive Protein Total Protein Albumin Globulin Albumin/Globulin Ratio Prealbumin Ur Leukocyte Esterase Urine WBC Urine Bacteria Urine Mucus Meds: Medications Acetaminophen (Acetaminophen 325 Mg Tablet) 650 mg PO Q6HP PRN; Protocol PRN Reason: Per Pain Protocol/Fever > 101 Hydrocodone Bitart/Acetaminophen (Hydrocodone/Apap 7.5/325mg Tablet) 1 tab PO Q8HP PRN PRN Reason: Pain Albuterol/Ipratropium (Ipratropium/Albuterol 3 Ml Ampul.Neb) 3 ml NEB Q4HP PRN PRN Reason: Shortness Of Breath Clonazepam (Clonazepam 0.5 Mg Tablet) 0.5 mg PO QHS TRINO Duloxetine HCl (Duloxetine 30 Mg Capsule) 60 mg PO QDAY TRINO Hydralazine HCl (Hydralazine 20 Mg/Ml Vial) 0 mg IV Q2HP PRN PRN Reason: Hypertension Metronidazole (Flagyl) 500 mg in 100 mls @ 100 mls/hr IV Q8 TRINO; Protocol Last Admin: 02/21/23 06:03 Dose: 100 mls/hr Ceftriaxone Sodium 2 gm/ (Dextrose) 50 mls @ 100 mls/hr IV Q24H [facility]; Protocol Last Infusion: 02/20/23 23:41 Dose: Infused Potassium Chloride 40 meq/ (Dextrose) 520 mls @ 130 mls/hr IV UD PRN PRN Reason: Potassium < 3 Magnesium Sulfate (Magnesium Sulfate) 2 gm in 50 mls @ 50 mls/hr IV UD PRN PRN Reason: Magnesium </= 1.6 Sodium Chloride (Sodium Chloride 0.9%) 1,000 mls @ 65 mls/hr IV .[id number] ONE Stop: 02/21/23 13:25 Last Admin: 02/21/23 03:13 Dose: 65 mls/hr Ondansetron HCl (Ondansetron 4 Mg/2 Ml Vial) 4 mg IV Q4HP PRN PRN Reason: Nausea And Vomiting Pantoprazole Sodium (Pantoprazole 40 Mg Vial) 40 mg IV QAMAC TRINO Potassium Chloride (Potassium Chloride 20 Meq Tablet) 20 meq PO QAMCC TRINO Potassium Chloride (Potassium Chloride 20 Meq Tablet) 40 meq PO UD PRN PRN Reason: Potssium is 3-3.5 Potassium Chloride (Potassium Chloride 20 Meq Tablet) 40 meq PO UD PRN PRN Reason: Potassium < 3 Potassium/Phosphorus/Sodium (Neutra Phos 1 Packet) 2 packet PO BID [facility] Stop: 02/22/23 21:01 Sodium Chloride (0.9 % Sodium Chloride 10 Ml Syringe) 10 ml IV Q8 [facility] Last Admin: 02/20/23 23:12 Dose: 10 ml Tamsulosin HCl (Tamsulosin 0.4 Mg Capsule) 0.4 mg PO QDAY [facility] A/P Narrative A/P Narrative: A: *Colitis w/Diarrhea: Undetermined etiology -Per discussion with GI in ED who did not feel patient needed colonoscopy -second hospitalization in a month for same thing -ESR low *GIB: likely 2/2 above -Per discussion with GI in ED who did not feel patient needed colonoscopy at this time -second hospitalization in a month for same thing -2prbc (02/20) with good response *Acute blood loss anemia, on chronic: 2/2 above -Did receive blood transfusion while at [facility] in January as well *Volume depletion w/Orthostatic hypotension: *Hypotension: Resolved in ED with IV fluids. -home ACEI/BB held for past 1-2 days at [facility] for low BP *UTI(Enterococcus): *Thrombocytopenia, chronic: *Leukopenia: *Electrolyte disorder (Hypocalcemia/Hypomagnesemia/Hypophosphatemia): *CKD II-III: *h/o CVA's: *Vascular dementia: *Severe protein calorie malnutrition: Muscle and fat loss -prealbumin 8.6 *HTN: Home MIHAI/BB recently held outpatient for low blood pressure *BPH with UR: Cheema placed at [facility] and has not followed up with urology yet *Chronic pain: on norco at home *Generalized weakness/deconditioning: *Anxiety: On clonazepam at home *?chronic pain: on ?norco at home *Dysphagia: P: -empiric abx (Rocephin/Flagyl) per GI -pending stool studies -IVF -monitor H&H, prn transfusion -Monitor renal function/UOP -Follow-up chemistry and replete electrolytes as needed, -Dietary consult -hold home ACEI/BB, may not need on d/c either -check orthostatic VS -pending UC sens -dysphagia diet and ST eval -pt/ot -CM for placement needs -maintain cheema, f/u with urology outpt -ppx: SCD / ppi Time Spent With Patient Time: Total time spent is greater than 50% in coordination of care (as documented) at patient's floor/unit and/or counseling patient: Subsequent: Total time with patient: 50 - 65 Minutes QUALITY Stroke Symptom Onset Unknown: No VTE Deep Vein Thrombosis/Pulmonary Embolism Present on Admission: No
[2023-02-21 07:03] LABS: ALT/SGPT 11 U/L (<40); AST/SGOT 18 U/L (<40); Albumin 1.9 gm/dL (3.2-5.2); Albumin/Globulin Ratio 0.8 (1.0-2.3); Alkaline Phosphatase 81 U/L (39-117); Bilirubin,Direct < 0.2 mg/dL (0-0.3); Bilirubin,Total 0.4 mg/dL (0.1-1.0); Blood Urea Nitrogen 7 mg/dL (8-23); Calcium 7.3 mg/dL (8.6-10.4); Carbon Dioxide 23 mmol/L (22-30); Chloride 101 mmol/L (96-108); Globulin 2.3 gm/dL (2.2-3.7); Glomerular Filtration Rate 72; Glucose 84 mg/dL (70-105); Lactate Dehydrogenase 264 U/L (135-225); Triglycerides 129 mg/dL (<150); Uric Acid 3.3 mg/dL (2.5-8.0)
--- NOTE | 2023-02-21 07:05 | EKG ---
[facility] Test Date: 2023-02-20 Pat Name: Wm Conte Department: ED Room: Gender: Male Mobile Product Manager: : 1945 Requested By: Jaison Nicolas Order Number: [id number] Reading MD: Mak Triana M.D. Measurements Intervals Guild Rate: 88 P: 72 OK: 146 QRS: 31 QRSD: 85 T: 58 QT: 369 QTc: 447 Interpretive Statements Sinus rhythm Low voltage, extremity leads Electronically Signed On 02-21-2023 7:05:23 PDT by Mak Triana M.D. /store/[id number]
[2023-02-21] MEDS: PANTOPRAZOLE 40 MG VIAL IV SCH (07:10)
[2023-02-21] MEDS: 0.9 % SODIUM CHLORIDE 10 ML SYRINGE IV SCH ×3 (07:11→21:20)
[2023-02-21] MEDS: POTASSIUM CHLORIDE 20 MEQ TABLET PO SCH (07:11)
[2023-02-21 08:38] LABS: Anisocytosis 1+ (None Seen); Band Neutrophils % 4 % (0-10); Eosinophils % (Manual) 2 % (0-7); Lymphocytes % 14 % (15-49); Monocytes % (Manual) 6 % (1-12); Platelet Estimate NORMAL (Normal); RBC Morphology ABNORMAL (Normal); Reactive Lymphocytes 1 % (0-2); Segmented Neutrophils % 73 % (38-78)
[2023-02-21] MEDS ORDERED: NEUTRA PHOS 1 PACKET PO SCH (09:00)
[2023-02-21] MEDS: TAMSULOSIN 0.4 MG CAPSULE PO SCH (09:47)
[2023-02-21] MEDS: DULoxetine 30 MG CAPSULE PO SCH ×2 (09:48→13:41)
[2023-02-21] MEDS ORDERED: cefTRIAXone 2 GM VIAL ONE (10:26)
[2023-02-21] MEDS: cefTRIAXone 2 GM in DEXTROSE 5% IN WATER 50 ML IV SCH (11:06)
[2023-02-21] MEDS ORDERED: AMPICILLIN SODIUM/SULBACTAM NA 1.5 GM in 0.9 % SODIUM CHLORIDE 50 ML IV SCH (16:00)
[2023-02-21] MEDS: AMPICILLIN SODIUM/SULBACTAM NA 1.5 GM in 0.9 % SODIUM CHLORIDE 50 ML IV SCH ×2 (18:48→23:18)
[2023-02-21] MEDS: clonazePAM 0.5 MG TABLET PO SCH (21:19)
[2023-02-22] MEDS: metroNIDAZOLE 500 MG/100 ML BAG IV SCH ×3 (05:37→21:54)
[2023-02-22 06:09] LABS: Hemoglobin 12.9 g/dL (13.7-17.5)
[2023-02-22 06:39] LABS: ALT/SGPT 10 U/L (<40); AST/SGOT 16 U/L (<40); Albumin/Globulin Ratio 0.8 (1.0-2.3); Alkaline Phosphatase 85 U/L (39-117); Bilirubin,Direct < 0.2 mg/dL (0-0.3); Bilirubin,Total 0.3 mg/dL (0.1-1.0); Blood Urea Nitrogen 9 mg/dL (8-23); Calcium 6.9 mg/dL (8.6-10.4); Carbon Dioxide 25 mmol/L (22-30); Chloride 103 mmol/L (96-108); Globulin 2.4 gm/dL (2.2-3.7); Glomerular Filtration Rate 72; Glucose 84 mg/dL (70-105); Lactate Dehydrogenase 264 U/L (135-225); Phosphorous 3.3 mg/dL (2.5-4.5); Triglycerides 87 mg/dL (<150); Uric Acid 3.2 mg/dL (2.5-8.0)
[2023-02-22] MEDS: AMPICILLIN SODIUM/SULBACTAM NA 1.5 GM in 0.9 % SODIUM CHLORIDE 50 ML IV SCH ×3 (06:45→18:01)
[2023-02-22] MEDS: PANTOPRAZOLE 40 MG VIAL IV SCH (07:34)
[2023-02-22] MEDS: 0.9 % SODIUM CHLORIDE 10 ML SYRINGE IV SCH ×2 (07:34→15:00)
[2023-02-22] MEDS ORDERED: CALCIUM GLUCONATE 4.65 MEQ/10 ML VIAL IV ONE (07:36)
--- NOTE | 2023-02-22 07:38 | Internal Med Progress Note ---
SUBJECTIVE Subjective Patient information: Note initiated : 02/22/23 at 7:34 am Service Date, if different from initiated Date: [] Patient: Wm Conte a 77 y/o M admitted on 02/20/23 for hypotension, tachycardia, general decline,Colitis. Chief Complaint: [] Interval history: History of present illness: Mr. Conte is a 77 year old M Presents to the ED from Dr. Ballard's office for evaluation for EGD and colonoscopy. Hypotension most notably hypotension and tachycardia. The concern that he was dehydrated severely and sent to the ED. Work-up in the ED revealed a hemoglobin of 7.2 which was A significant drop from his baseline. Also feels significantly weaker. Patient states his bowel movements have been light brown but patient does have vascular dementia and is seems to be a poor historian. He says yes 1-2 episodes of diarrhea per day and that it is better from when he was at [facility]. Patient feels he does have poor oral intake. He was admitted at [facility] in January and treated for colitis and treated with round of IV antibiotics and got several units of blood there he also treated for acute kidney injury acute urinary retention and has a Cheema placed at this time supposed to follow-up with urology. He was also treated for metabolic encephalopathy. Apparently stool studies were unremarkable at [facility]. Patient denies any nausea vomiting chest pain shortness of breath headache fever chills. Patient does admit a little bit of lightheadedness. He states he has some lower abdominal pressure but no real pain. In the ED patient was given IV fluids and antibiotics. With IV fluids blood pressure improved. In the ED he had a CT abdomen pelvis which showed thickening of the proximal descending colon suggesting colitis and some asymmetrical thickening of the wall of the rectum which was noted to be possibility of cancer or postradiation change. Case was discussed with our surgeon do not feel the patient needed a colonoscopy at this time or any surgical evaluation. This felt the thickening of the rectum was likely postradiation change as he did have a colonoscopy last May. Patient has had diarrhea since early January treated with a round of antibiotics at [facility] as well as having bleeding. Patient still having diarrhea although not as severe still having bleeding. I felt this patient needed a pavilion cutter to evaluate and possibly perform endoscopy. Case was discussed with a pavilion cutter (Dr. Treviñoat on an outside facility ([facility] ) who felt the patient did not need GI intervention including endoscopy and just needed another round of IV antibiotics with IV hydration and a review of any medications to cause diarrhea. I was bit frustrated given the history and the likely need for GI eval or intervention but reluctantly agreed to keep the patient here and will try those empiric treatments including we will do stool studies again. The daughter is quite frustrated as well as this is the second hospitalization in a month for the same thing. My hope is to see improvement enough that we can discharge him and have him follow-up with surgery and GI outpatient. If patient returns at that point again for the same issue without having seen pavilion cutter then patient will need to be transferred to facility that has GI specialist on board. I discussed this with the daughter present at bedside. Patient is started on 2 units of blood in ED as well. Platelets are little low at 100 but they are chronically low. Does have a leukopenia as well. Labs are difficult cold to interpret as the wyrfb-nl-mozy potassium was 2.3 but the lab draw is 4.1. While a nayro-ly-pqwr chloride is 110 and the lab draws 96. A igxaq-qd-euww creatinine is 1.3 but the lab value was 0.6. Does have hypocalcemia. Albumin quite low at 1.9. 02/21 No diarrhea overnight. Patient says he has difficulty swallowing his food and that is getting stuck. No nausea vomiting. Patient responded well to blood transfusion yesterday. Hypocalcemia. 02/22 No diarrhea. It sounds like patient did get MiraLAX Outpatient and was on Reglan 3 times a day.No overnight event or new complaints. Patient seems to to be feeling a little bit better. hgb stable. Hypocalcemia noted. Vitamin D metabolites and intact PTH pending. Review of Systems: Pertinent positives as above. Denies headache/fever/chills/nausea/vomiting/chest or abdominal pain/cough/dyspnea. PHYSICAL EXAM General: Alert, Awake, No acute Distress, frail Eyes/N/T: EOMI, no scleral icterus, Head/Neck: neck supple, full ROM, CV: RRR, No murmurs, Pulm: Clear b/l, no wheezing/rhonchi/rales, no respiratory distress Abd: soft, nontender, +BS x4 Ext: no clubbing/cyanosis, mild b/l LE edema, nontender Neuro: Alert, no focal deficits, moves all extremities, sensations intact b/l upper/lower Psychiatric: Skin: warm/dry, normal color Constitutional Vitals: Vital Signs Temp Pulse Resp BP Pulse Ox O2 Del Method 97.7 F 95 H 12 114/78 98 Room Air 02/22/23 03:40 02/22/23 03:40 02/22/23 03:40 02/22/23 03:40 02/22/23 03:40 02/22/23 03:40 Period Temp Pulse Resp BP Sys/Bonilla Pulse Ox O2 Del Method O2 Flow Rate Last 24 Hr 96.9 F-97.7 F 85-101 12-17 91-139/60-97 95-99 Room Air-Room Air Intake and Output 02/21/23 02/22/23 02/22/23 19:59 03:59 11:59 Intake Total 1709.0909 400 100 Output Total 450 1150 Balance 1259.0909 -750 100 Weight 55.111 kg Intake & Output: Intake & Output 02/21/23 02/22/23 02/22/23 19:59 03:59 11:59 Intake Total 1709.0909 400 100 Output Total 450 1150 Balance 1259.0909 -750 100 Weight 55.111 kg Intake: IV 1709.0909 150 100 Sodium Chloride 0.9% 1,000 ml @ 1000 65 mls/hr IV .[id number] Rx#: [id number] Unasyn 1.5 gm In Sodium 50 50 Chloride 0.9% 50 ml @ 100 mls/ hr IV Q6H [facility] Rx#:[id number] Potassium Phosphate 40 Meq In 509.0909 Dextrose 5% in Water 500 ml @ 42.424 mls/hr IV ONCE [facility] Rx#: [id number] Rocephin 2 gm In Dextrose 5% in 50 Water 50 ml @ 100 mls/hr IV Q24H [facility] Rx#:[id number] Oral 250 Output: Urine Catheter Amount 450 1150 Other: Urine Appearance Clear Urine Color Yellow OBJ DATA Labs 02/22/23 05:25 02/22/23 05:25 Labs: Abnormal Lab Results 02/22/23 02/22/23 02/21/23 05:25 05:25 06:00 WBC RBC Hgb 12.9 L Hct 39.0 L POC Hct MCHC RDW Plt Count MPV Immature Gran % (Auto) [place] % (Auto) Lymph # (Auto) Lymphocytes % Immature Gran # RBC Morphology Hypochromasia Anisocytosis Macrocytosis POC PT POC INR POC Potassium POC Chloride POC Total CO2 Anion Gap POC BUN BUN 7 L POC Creatinine POC Glucose Calcium 6.9 L 7.3 L POC WB Ioniz Calcium Phosphorus Magnesium Lactate Dehydrogenase 264 H 264 H C-Reactive Protein Total Protein 4.4 L 4.2 L Albumin 2.0 L 1.9 L Globulin Albumin/Globulin Ratio 0.8 L 0.8 L Prealbumin Ur Leukocyte Esterase Urine WBC Urine Bacteria Urine Mucus 02/21/23 02/20/23 02/20/23 06:00 14:57 14:46 WBC RBC 4.15 L Hgb 12.7 L Hct 37.8 L POC Hct MCHC RDW 16.2 H Plt Count MPV Immature Gran % (Auto) [place] % (Auto) Lymph # (Auto) Lymphocytes % 14 L Immature Gran # RBC Morphology Abnormal A Hypochromasia Anisocytosis 1+ A Macrocytosis POC PT 17.9 H POC INR 1.5 H POC Potassium POC Chloride POC Total CO2 Anion Gap POC BUN BUN POC Creatinine POC Glucose Calcium POC WB Ioniz Calcium Phosphorus Magnesium Lactate Dehydrogenase C-Reactive Protein Total Protein Albumin Globulin Albumin/Globulin Ratio Prealbumin Ur Leukocyte Esterase 75 A Urine WBC 5 H Urine Bacteria Few A Urine Mucus Few A 02/20/23 02/20/23 02/20/23 14:37 13:58 12:29 WBC RBC Hgb Hct POC Hct 27.0 L 20.0 L* MCHC RDW Plt Count MPV Immature Gran % (Auto) [place] % (Auto) Lymph # (Auto) Lymphocytes % Immature Gran # RBC Morphology Hypochromasia Anisocytosis Macrocytosis POC PT POC INR POC Potassium 2.3 L* POC Chloride 110 H POC Total CO2 17.0 L Anion Gap 5.0 L POC BUN 5 L BUN POC Creatinine 1.3 H POC Glucose 58 L Calcium 6.5 L POC WB Ioniz Calcium 0.95 L 0.70 L* Phosphorus Magnesium Lactate Dehydrogenase C-Reactive Protein Total Protein 4.1 L Albumin 1.9 L Globulin Albumin/Globulin Ratio 0.9 L Prealbumin Ur Leukocyte Esterase Urine WBC Urine Bacteria Urine Mucus 02/20/23 02/20/23 02/20/23 12:28 12:28 12:28 WBC RBC Hgb Hct POC Hct MCHC RDW Plt Count MPV Immature Gran % (Auto) [place] % (Auto) Lymph # (Auto) Lymphocytes % Immature Gran # RBC Morphology Abnormal A Hypochromasia 1+ A Anisocytosis 1+ A Macrocytosis 1+ A POC PT POC INR POC Potassium POC Chloride POC Total CO2 Anion Gap POC BUN BUN POC Creatinine POC Glucose Calcium POC WB Ioniz Calcium Phosphorus 2.0 L Magnesium 1.1 L Lactate Dehydrogenase C-Reactive Protein 1.10 H Total Protein Albumin Globulin Albumin/Globulin Ratio Prealbumin 8.6 L Ur Leukocyte Esterase Urine WBC Urine Bacteria Urine Mucus 02/20/23 02/20/23 12:28 12:28 WBC 4.2 L RBC 2.35 L Hgb 7.2 L Hct 23.4 L POC Hct MCHC 30.8 L RDW 16.6 H Plt Count 100 L MPV 13.0 H Immature Gran % (Auto) 1.4 H [place] % (Auto) 13.5 H Lymph # (Auto) 0.86 L Lymphocytes % Immature Gran # 0.06 H RBC Morphology Hypochromasia Anisocytosis Macrocytosis POC PT POC INR POC Potassium POC Chloride POC Total CO2 Anion Gap POC BUN BUN POC Creatinine POC Glucose Calcium POC WB Ioniz Calcium Phosphorus Magnesium Lactate Dehydrogenase C-Reactive Protein Total Protein 2.6 L Albumin 1.2 L Globulin 1.4 L Albumin/Globulin Ratio Prealbumin Ur Leukocyte Esterase Urine WBC Urine Bacteria Urine Mucus Meds: Medications Acetaminophen (Acetaminophen 325 Mg Tablet) 650 mg PO Q6HP PRN; Protocol PRN Reason: Per Pain Protocol/Fever > 101 Hydrocodone Bitart/Acetaminophen (Hydrocodone/Apap 7.5/325mg Tablet) 1 tab PO Q8HP PRN PRN Reason: Pain Albuterol/Ipratropium (Ipratropium/Albuterol 3 Ml Ampul.Neb) 3 ml NEB Q4HP PRN PRN Reason: Shortness Of Breath Clonazepam (Clonazepam 0.5 Mg Tablet) 0.5 mg PO QHS [facility] Last Admin: 02/21/23 21:19 Dose: 0.5 mg Duloxetine HCl (Duloxetine 30 Mg Capsule) 60 mg PO QDAY [facility] Last Admin: 02/21/23 13:41 Dose: 60 mg Hydralazine HCl (Hydralazine 20 Mg/Ml Vial) 0 mg IV Q2HP PRN PRN Reason: Hypertension Metronidazole (Flagyl) 500 mg in 100 mls @ 100 mls/hr IV Q8 [facility]; Protocol Last Infusion: 02/22/23 06:38 Dose: Infused Potassium Chloride 40 meq/ (Dextrose) 520 mls @ 130 mls/hr IV UD PRN PRN Reason: Potassium < 3 Magnesium Sulfate (Magnesium Sulfate) 2 gm in 50 mls @ 50 mls/hr IV UD PRN PRN Reason: Magnesium </= 1.6 Ampicillin Sodium/Sulbactam (Sodium 1.5 gm/ Sodium Chloride) 50 mls @ 100 mls/hr IV Q6H [facility] Last Admin: 02/22/23 06:45 Dose: 100 mls/hr Ondansetron HCl (Ondansetron 4 Mg/2 Ml Vial) 4 mg IV Q4HP PRN PRN Reason: Nausea And Vomiting Pantoprazole Sodium (Pantoprazole 40 Mg Vial) [facility] Admin: 02/21/23 07:10 Dose: 40 mg Potassium Chloride (Potassium Chloride 20 Meq Tablet) 20 meq PO QAC [facility] Last Admin: 02/21/23 07:11 Dose: 20 meq Potassium Chloride (Potassium Chloride 20 Meq Tablet) 40 meq PO UD PRN PRN Reason: Potssium is 3-3.5 Potassium Chloride (Potassium Chloride 20 Meq Tablet) 40 meq PO UD PRN PRN Reason: Potassium < 3 Sodium Chloride (0.9 % Sodium Chloride 10 Ml Syringe) 10 ml IV Q8 [facility] Last Admin: 02/21/23 21:20 Dose: 10 ml Tamsulosin HCl (Tamsulosin 0.4 Mg Capsule) 0.4 mg PO QDAY [facility] Last Admin: 02/21/23 09:47 Dose: 0.4 mg A/P Narrative A/P Narrative: A: *Colitis w/Diarrhea: Undetermined etiology -Diarrhea improved from last admission, also pt on reglan and did get lax ative outpt -ESR low *GIB: likely 2/2 colitis -Per discussion with GI in ED who did not feel patient needed colonoscopy at this time -[facility] *Acute blood loss anemia, on chronic: 2/2 above -Did receive blood transfusion while at [facility] in January as well *Volume depletion w/Orthostatic hypotension: improving *Hypotension: Resolved in ED with IV fluids. -home ACEI/BB held for past 1-2 days at [facility] for low BP *UTI(Enterococcus): *Thrombocytopenia, chronic: improving *Leukopenia: improving *Electrolyte disorder (Hypocalcemia/Hypomagnesemia/Hypophosphatemia): vit d & iPTH pending *CKD II-III: *h/o CVA's: *Vascular dementia: *Severe protein calorie malnutrition: Muscle and fat loss -prealbumin 8.6 *HTN: Home MIHAI/BB recently held outpatient for low blood pressure *BPH with UR: Cheema placed at [facility] and has not followed up with urology yet *Chronic pain: on norco at home *Generalized weakness/deconditioning: *Anxiety: On clonazepam at home *chronic pain: on norco at home *Dysphagia: P: -empiric abx per GI -pending stool studies -monitor H&H, prn transfusion -Monitor renal function/UOP -Follow-up chemistry and replete electrolytes as needed, -Dietary consult -hold home ACEI/BB, may not need on d/c either -check orthostatic VS -pending UC sens -dysphagia diet per ST -pt/ot -CM for placement needs -maintain cheema, f/u with urology outpt -f/u with GI/Surgeon outpt -ppx: SCD / ppi Time Spent With Patient Time: Total time spent is greater than 50% in coordination of care (as documented) at patient's floor/unit and/or counseling patient: Subsequent: Total time with patient: 50 - 65 Minutes QUALITY Stroke Symptom Onset Unknown: No VTE Deep Vein Thrombosis/Pulmonary Embolism Present on Admission: No
[2023-02-22] MEDS: POTASSIUM CHLORIDE 20 MEQ TABLET PO SCH (08:11)
[2023-02-22] MEDS: DULoxetine 30 MG CAPSULE PO SCH (08:50)
[2023-02-22] MEDS: TAMSULOSIN 0.4 MG CAPSULE PO SCH (08:50)
[2023-02-22 09:56] LABS: Parathyroid Hormone Intact-SO 31.3 pg/mL (15.0-65.0)
--- NOTE | 2023-02-22 12:17 | Discharge Summary ---
Discharge Provider Provider IMPORTANT FOLLOW-UP INFORMATION FOR PCP: Patient information: Note initiated : 02/22/23 at 12:12 pm Service Date, if different from initiated Date: [] Patient: Wm Conte 77 y/o M admitted on 02/20/23 for hypotension, tachycardia, general decline,Colitis. Chief Complaint: [] Date of admission: 02/20/23 22:00 Discharge date: 02/23/23 Primary care physician: Patel Jacob MD Consults: 02/20/23 17:28 Consult to Physician [CONS] Stat Comment: Consulting Provider: Ben Bañuelos Reason For Exam: Physician to Consult COURSE Hospital Course Hospital course: History of present illness: Mr. Conte is a 77 year old M Presents to the ED from Dr. Ballard's office for evaluation for EGD and colonoscopy. Hypotension most notably hypotension and tachycardia. The concern that he was dehydrated severely and sent to the ED. Work-up in the ED revealed a hemoglobin of 7.2 which was A significant drop from his baseline. Also feels significantly weaker. Patient states his bowel movements have been light brown but patient does have vascular dementia and is seems to be a poor historian. He says yes 1-2 episodes of diarrhea per day and that it is better from when he was at [facility]. Patient feels he does have poor oral intake. He was admitted at [facility] in January and treated for colitis and treated with round of IV antibiotics and got several units of blood there he also treated for acute kidney injury acute urinary retention and has a Cheema placed at this time supposed to follow-up with urology. He was also treated for metabolic encephalopathy. Apparently stool studies were unremarkable at [facility]. Patient denies any nausea vomiting chest pain shortness of breath headache fever chills. Patient does admit a little bit of lightheadedness. He states he has some lower abdominal pressure but no real pain. In the ED patient was given IV fluids and antibiotics. With IV fluids blood pressure improved. In the ED he had a CT abdomen pelvis which showed thickening of the proximal descending colon suggesting colitis and some asymmetrical thickening of the wall of the rectum which was noted to be possibility of cancer or postradiation change. Case was discussed with our surgeon do not feel the patient needed a colonoscopy at this time or any surgical evaluation. This felt the thickening of the rectum was likely postradiation change as he did have a colonoscopy last May. Patient has had diarrhea since early January treated with a round of antibiotics at [facility] as well as having bleeding. Patient still having diarrhea although not as severe still having bleeding. I felt this patient needed a stone hand to evaluate and possibly perform endoscopy. Case was discussed with a stone hand (Dr. Treviñoat on an outside facility ([facility] ) who felt the patient did not need GI intervention including endoscopy and just needed another round of IV antibiotics with IV hydration and a review of any medications to cause diarrhea. I was bit frustrated given the history and the likely need for GI eval or intervention but reluctantly agreed to keep the patient here and will try those empiric treatments including we will do stool studies again. The daughter is quite frustrated as well as this is the second hospitalization in a month for the same thing. My hope is to see improvement enough that we can discharge him and have him follow-up with surgery and GI outpatient. If patient returns at that point again for the same issue without having seen stone hand then patient will need to be transferred to facility that has GI specialist on board. I discussed this with the daughter present at bedside. Patient is started on 2 units of blood in ED as well. Platelets are little low at 100 but they are chronically low. Does have a leukopenia as well. Labs are difficult cold to interpret as the xfusc-wm-tnsr potassium was 2.3 but the lab draw is 4.1. While a jzvar-ws-xpap chloride is 110 and the lab draws 96. A ebmxl-fl-dmjb creatinine is 1.3 but the lab value was 0.6. Does have hypocalcemia. Albumin quite low at 1.9. 02/21 No diarrhea overnight. Patient says he has difficulty swallowing his food and that is getting stuck. No nausea vomiting. Patient responded well to blood transfusion yesterday. Hypocalcemia. 02/22 No diarrhea. It sounds like patient did get [facility]X Outpatient and was on Reglan 3 times a day.No overnight event or new complaints. Patient seems to to be feeling a little bit better. hgb stable. Hypocalcemia noted. Vitamin D metabolites and intact PTH pending. 02/23 No overnight event or new complaints. No further diarrhea. Patient noted to be vitamin D deficient and vitamin D started. Still pending 125 dihydroxy vitamin D. Awaiting Enterococcus sensitivity A: *Colitis: *GIB: likely 2/2 colitis -2prbc (02/20) with good response *Acute blood loss anemia, on chronic: 2/2 above *Volume depletion w/Orthostatic hypotension: *Hypotension: Resolved in ED with IV fluids. -home ACEI/BB held for past 1-2 days at [facility] for low BP *UTI(Enterococcus): *Thrombocytopenia, chronic: *Leukopenia: *Electrolyte disorder (Hypocalcemia/Hypomagnesemia/Hypophosphatemia): *CKD II-III: *h/o CVA's: *Vascular dementia: *Severe protein calorie malnutrition: Muscle and fat loss, prealbumin 8.6 *HTN: Home MIHAI/BB recently held outpatient for low blood pressure *BPH with UR: Cheema placed at [facility] and has not followed up with urology yet *Chronic pain: *Generalized weakness/deconditioning: *Anxiety: P: -finish course of empiric abx and for urine -maintain cheema, f/u with urology outpt -f/u with GI/Surgeon outpt Discharge diagnosis: GI bleed anemia colitis Secondary discharge diagnosis: Volume depletion hypotension Enterococcus UTI thrombocytopenia leukopenia electrolyte disorder chronic kidney disease history of stroke vascular dementia severe protein calorie malnutrition hypertension-BPH chronic pain weakness deconditioning Anxiety Time Spent with Patient Time attestation: Total time spent providing and/or coordinating discharge services: Time spent: Greater than 30 minutes EXAM Constitutional Vitals: Temp Pulse Resp BP Pulse Ox O2 Del Method O2 Flow Rate 97.1 F 92 H 16 110/71 94 Room Air 0 02/22/23 08:00 02/22/23 08:00 02/22/23 08:00 02/22/23 08:00 02/22/23 08:00 02/22/23 08:00 02/22/23 08:00 Discharge Data Data Completed and Pending Labs on day of discharge: Labs from last 24 hours 02/22/23 02/22/23 02/22/23 08:10 05:25 05:25 Hgb Hct Sodium 136 Potassium 4.4 Chloride 103 Carbon Dioxide 25 Anion Gap 8.0 BUN 9 Creatinine 1.0 GFR Calculation 72 Glucose 84 Uric Acid 3.2 Calcium 6.9 L Phosphorus 3.3 Magnesium 2.0 Total Bilirubin 0.3 Direct Bilirubin < 0.2 GGT 14 AST 16 ALT 10 Alkaline Phosphatase 85 Lactate Dehydrogenase 264 H Total Protein 4.4 L Albumin 2.0 L Globulin 2.4 Albumin/Globulin Ratio 0.8 L Triglycerides 87 25-OH Vitamin D Total Pending Vit D 1,25-Dihydroxy Pending PTH Intact 31.3 02/22/23 05:25 Hgb 12.9 L Hct 39.0 L Sodium Potassium Chloride Carbon Dioxide Anion Gap BUN Creatinine GFR Calculation Glucose Uric Acid Calcium Phosphorus Magnesium Total Bilirubin Direct Bilirubin GGT AST ALT Alkaline Phosphatase Lactate Dehydrogenase Total Protein Albumin Globulin Albumin/Globulin Ratio Triglycerides 25-OH Vitamin D Total Vit D 1,25-Dihydroxy PTH Intact Preliminary micro results at discharge 02/20/23 14:46 Urine Culture - Preliminary Urine - Cheema Enterococcus species 02/20/23 14:35 Blood Culture - Preliminary Blood 02/20/23 14:00 Blood Culture - Preliminary Blood Discharge Plan Patient/Caregiver Discharge Instructions Activity: increase activity as tolerated Diet: Dysphagia Level 6 Soft & Bite-Sized Foods Activity Restrictions/Additional Instructions: Follow-up with urology in 3 to 7 days for urinary retention and BPH. Follow-up with GI in 3 to 7 days for GI bleed and colitis. Prescriptions: New metronidazole 500 mg tablet 500 mg PO Q8H Qty: 10 0RF amoxicillin 875 mg tablet 875 mg PO BID Qty: 8 0RF cholecalciferol (vitamin D3) [Vitamin D3] 25 mcg (1,000 unit) capsule 25 mcg PO QDAY Qty: 30 0RF Continued clonazepam 0.5 mg tablet 0.5 mg PO QHS Qty: 30 1RF loratadine [Claritin] 10 mg Tablet 10 mg PO QDAY PRN (Reason: ALLERGIES) tamsulosin 0.4 mg capsule 0.4 mg PO QDAY mineral oil [Fleet Mineral Oil] Enema 1 ea FL DAILY bisacodyl [Dulcolax (bisacodyl)] 10 mg Suppository 10 mg FL DAILY PRN (Reason: Constipation) duloxetine 60 mg capsule,delayed release(DR/EC) 60 mg PO QDAY Miralax 1 packet PO DAILY PRN (Reason: Constipation) ipratropium bromide 1 spray intranasal DAILY potassium chloride 20 meq PO DAILY Changed ondansetron HCl 4 mg Tablet 4 mg PO Q8H PRN (Reason: nausea) Qty: 1 0RF Discontinued Reglan 5 mg PO TID Tenormin 12.5 mg PO DAILY lisinopril 40 mg tablet 20 mg PO QDAY Follow Up Plan Follow up with: Patel Jacob MD [Primary Care Provider] - Patient Disposition: Xfer SNF Prognosis: Fair Rehab Potential: Fair Overall status at discharge: patient is progressing back to baseline Discharge Orders: Discharge Order (Routine); Ordered 02/23/23 Ordered By: Ben Bañuelos [facility] VTE Deep Vein Thrombosis/Pulmonary Embolism Present on Admission: No
[2023-02-22] MEDS: VITAMIN D3 25 MCG TABLET PO SCH (15:57)
[2023-02-22] MEDS: clonazePAM 0.5 MG TABLET PO SCH (20:48)
[2023-02-23] MEDS: AMPICILLIN SODIUM/SULBACTAM NA 1.5 GM in 0.9 % SODIUM CHLORIDE 50 ML IV SCH ×3 (00:10→11:54)
[2023-02-23] MEDS: 0.9 % SODIUM CHLORIDE 10 ML SYRINGE IV SCH ×5 (00:10→12:33)
[2023-02-23] MEDS: metroNIDAZOLE 500 MG/100 ML BAG IV SCH ×2 (05:33→13:05)
[2023-02-23] MEDS: PANTOPRAZOLE 40 MG VIAL IV SCH (06:45)
--- NOTE | 2023-02-23 07:44 | Internal Med Progress Note ---
SUBJECTIVE Subjective Patient information: Note initiated : 02/23/23 at 7:40 am Service Date, if different from initiated Date: [] Patient: Wm Conte a 77 y/o M admitted on 02/20/23 for hypotension, tachycardia, general decline,Colitis. Chief Complaint: [] Interval history: History of present illness: Mr. Conte is a 77 year old M Presents to the ED from Dr. Ballard's office for evaluation for EGD and colonoscopy. Hypotension most notably hypotension and tachycardia. The concern that he was dehydrated severely and sent to the ED. Work-up in the ED revealed a hemoglobin of 7.2 which was A significant drop from his baseline. Also feels significantly weaker. Patient states his bowel movements have been light brown but patient does have vascular dementia and is seems to be a poor historian. He says yes 1-2 episodes of diarrhea per day and that it is better from when he was at [facility]. Patient feels he does have poor oral intake. He was admitted at [facility] in January and treated for colitis and treated with round of IV antibiotics and got several units of blood there he also treated for acute kidney injury acute urinary retention and has a Cheema placed at this time supposed to follow-up with urology. He was also treated for metabolic encephalopathy. Apparently stool studies were unremarkable at [facility]. Patient denies any nausea vomiting chest pain shortness of breath headache fever chills. Patient does admit a little bit of lightheadedness. He states he has some lower abdominal pressure but no real pain. In the ED patient was given IV fluids and antibiotics. With IV fluids blood pressure improved. In the ED he had a CT abdomen pelvis which showed thickening of the proximal descending colon suggesting colitis and some asymmetrical thickening of the wall of the rectum which was noted to be possibility of cancer or postradiation change. Case was discussed with our surgeon do not feel the patient needed a colonoscopy at this time or any surgical evaluation. This felt the thickening of the rectum was likely postradiation change as he did have a colonoscopy last May. Patient has had diarrhea since early January treated with a round of antibiotics at [facility] as well as having bleeding. Patient still having diarrhea although not as severe still having bleeding. I felt this patient needed a rotoformer backtender to evaluate and possibly perform endoscopy. Case was discussed with a rotoformer backtender (Dr. Treviñoat on an outside facility [place] [place] who felt the patient did not need GI intervention including endoscopy and just needed another round of IV antibiotics with IV hydration and a review of any medications to cause diarrhea. I was bit frustrated given the history and the likely need for GI eval or intervention but reluctantly agreed to keep the patient here and will try those empiric treatments including we will do stool studies again. The daughter is quite frustrated as well as this is the second hospitalization in a month for the same thing. My hope is to see improvement enough that we can discharge him and have him follow-up with surgery and GI outpatient. If patient returns at that point again for the same issue without having seen rotoformer backtender then patient will need to be transferred to facility that has GI specialist on board. I discussed this with the daughter present at bedside. Patient is started on 2 units of blood in ED as well. Platelets are little low at 100 but they are chronically low. Does have a leukopenia as well. Labs are difficult cold to interpret as the [id number]-[id number] potassium was 2.3 but the lab draw is 4.1. While a [id number]-rxba chloride is 110 and the lab draws 96. A rdusm-ub-iksh creatinine is 1.3 but the lab value was 0.6. Does have hypocalcemia. Albumin quite low at 1.9. 02/21 No diarrhea overnight. Patient says he has difficulty swallowing his food and that is getting stuck. No nausea vomiting. Patient responded well to blood transfusion yesterday. Hypocalcemia. 02/22 No diarrhea. It sounds like patient did get [facility] and was on Reglan 3 times a day.No overnight event or new complaints. Patient seems to to be feeling a little bit better. hgb stable. Hypocalcemia noted. Vitamin D metabolites and intact PTH pending. 02/23 No overnight event or new complaints. No further diarrhea. Patient noted to be vitamin D deficient and vitamin D started. Still pending 125 dihydroxy vitamin D. Awaiting Enterococcus sensitivity Review of Systems: Pertinent positives as above. Denies headache/fever/chills/nausea/vomiting/chest or abdominal pain/cough/dyspnea. PHYSICAL EXAM General: Alert, Awake, No acute Distress, frail Eyes/N/T: EOMI, no scleral icterus, Head/Neck: neck supple, full ROM, CV: RRR, No murmurs, Pulm: Clear b/l, no wheezing/rhonchi/rales, no respiratory distress Abd: soft, nontender, +BS x4 Ext: no clubbing/cyanosis, mild b/l LE edema, nontender Neuro: Alert, no focal deficits, moves all extremities, sensations intact b/l upper/lower Psychiatric: Skin: warm/dry, normal color Constitutional Vitals: Vital Signs Temp Pulse Resp BP Pulse Ox O2 Del Method O2 Flow Rate 97.7 F 92 H 18 102/68 96 Room Air 0 02/23/23 06:50 02/23/23 06:50 02/23/23 06:55 02/23/23 06:50 02/23/23 06:55 02/23/23 06:55 02/23/23 06:55 Period Temp Pulse Resp BP Sys/Bonilla Pulse Ox O2 Del Method O2 Flow Rate Last 24 Hr 96.7 F-97.7 F 64-97 14-96 100-127/62-88 94-99 Room Air-Room Air 0-0 Intake and Output 02/22/23 02/23/23 02/23/23 19:59 03:59 11:59 Intake Total 800 200 150 Output Total 1350 1200 Balance -550 -1000 150 Weight 54.613 kg Intake & Output: Intake & Output 02/22/23 02/23/23 02/23/23 19:59 03:59 11:59 Intake Total 800 200 150 Output Total 1350 1200 Balance -550 -1000 150 Weight 54.613 kg Intake: Nourishment/Supplement quantity 0 (ml) IV 200 150 150 Unasyn 1.5 gm In Sodium 100 50 50 Chloride 0.9% 50 ml @ 100 mls/ hr IV Q6H [facility] Rx#:[id number] Oral 600 50 Output: Urine Catheter Amount 1350 1200 Other: Meal Dinner Percent of Meal Consumed 100% Feeding Ability Independent Nourishment/Supplement name Ensure Urine Appearance Clear Clear Clear Uretheral (Cheema) Clear Clear Urine Color Bright Yellow Dark Yellow Bright Yellow Uretheral (Cheema) Bright Yellow Bright Yellow Urine Odor Normal Normal Uretheral (Cheema) Normal OBJ DATA Labs 02/22/23 05:25 02/22/23 05:25 Labs: Abnormal Lab Results 02/22/23 02/22/23 02/22/23 05:25 05:25 05:25 WBC RBC Hgb 12.9 L Hct 39.0 L POC Hct MCHC RDW Plt Count MPV Immature Gran % (Auto) [place] % (Auto) Lymph # (Auto) Lymphocytes % Immature Gran # RBC Morphology Hypochromasia Anisocytosis Macrocytosis POC PT POC INR POC Potassium POC Chloride POC Total CO2 Anion Gap POC BUN BUN POC Creatinine POC Glucose Calcium 6.9 L POC WB Ioniz Calcium Phosphorus Magnesium Lactate Dehydrogenase 264 H C-Reactive Protein Total Protein 4.4 L Albumin 2.0 L Globulin Albumin/Globulin Ratio 0.8 L Prealbumin 25-OH Vitamin D Total 15.11 L Ur Leukocyte Esterase Urine WBC Urine Bacteria Urine Mucus 02/21/23 02/21/23 02/20/23 06:00 06:00 14:57 WBC RBC 4.15 L Hgb 12.7 L Hct 37.8 L POC Hct MCHC RDW 16.2 H Plt Count MPV Immature Gran % (Auto) [place] % (Auto) Lymph # (Auto) Lymphocytes % 14 L Immature Gran # RBC Morphology Abnormal A Hypochromasia Anisocytosis 1+ A Macrocytosis POC PT 17.9 H POC INR 1.5 H POC Potassium POC Chloride POC Total CO2 Anion Gap POC BUN BUN 7 L POC Creatinine POC Glucose Calcium 7.3 L POC WB Ioniz Calcium Phosphorus Magnesium Lactate Dehydrogenase 264 H C-Reactive Protein Total Protein 4.2 L Albumin 1.9 L Globulin Albumin/Globulin Ratio 0.8 L Prealbumin 25-OH Vitamin D Total Ur Leukocyte Esterase Urine WBC Urine Bacteria Urine Mucus 02/20/23 02/20/23 02/20/23 14:46 14:37 13:58 WBC RBC Hgb Hct POC Hct 27.0 L MCHC RDW Plt Count MPV Immature Gran % (Auto) [place] % (Auto) Lymph # (Auto) Lymphocytes % Immature Gran # RBC Morphology Hypochromasia Anisocytosis Macrocytosis POC PT POC INR POC Potassium POC Chloride POC Total CO2 Anion Gap 5.0 L POC BUN BUN POC Creatinine 1.3 H POC Glucose Calcium 6.5 L POC WB Ioniz Calcium 0.95 L Phosphorus Magnesium Lactate Dehydrogenase C-Reactive Protein Total Protein 4.1 L Albumin 1.9 L Globulin Albumin/Globulin Ratio 0.9 L Prealbumin 25-OH Vitamin D Total Ur Leukocyte Esterase 75 A Urine WBC 5 H Urine Bacteria Few A Urine Mucus Few A 02/20/23 02/20/23 02/20/23 12:29 12:28 12:28 WBC RBC Hgb Hct POC Hct 20.0 L* MCHC RDW Plt Count MPV Immature Gran % (Auto) [place] % (Auto) Lymph # (Auto) Lymphocytes % Immature Gran # RBC Morphology Abnormal A Hypochromasia 1+ A Anisocytosis 1+ A Macrocytosis 1+ A POC PT POC INR POC Potassium 2.3 L* POC Chloride 110 H POC Total CO2 17.0 L Anion Gap POC BUN 5 L BUN POC Creatinine POC Glucose 58 L Calcium POC WB Ioniz Calcium 0.70 L* Phosphorus Magnesium Lactate Dehydrogenase C-Reactive Protein Total Protein Albumin Globulin Albumin/Globulin Ratio Prealbumin 8.6 L 25-OH Vitamin D Total Ur Leukocyte Esterase Urine WBC Urine Bacteria Urine Mucus 02/20/23 02/20/23 02/20/23 12:28 12:28 12:28 WBC 4.2 L RBC 2.35 L Hgb 7.2 L Hct 23.4 L POC Hct MCHC 30.8 L RDW 16.6 H Plt Count 100 L MPV 13.0 H Immature Gran % (Auto) 1.4 H [place] % (Auto) 13.5 H Lymph # (Auto) 0.86 L Lymphocytes % Immature Gran # 0.06 H RBC Morphology Hypochromasia Anisocytosis Macrocytosis POC PT POC INR POC Potassium POC Chloride POC Total CO2 Anion Gap POC BUN BUN POC Creatinine POC Glucose Calcium POC WB Ioniz Calcium Phosphorus 2.0 L Magnesium 1.1 L Lactate Dehydrogenase C-Reactive Protein 1.10 H Total Protein 2.6 L Albumin 1.2 L Globulin 1.4 L Albumin/Globulin Ratio Prealbumin 25-OH Vitamin D Total Ur Leukocyte Esterase Urine WBC Urine Bacteria Urine Mucus Meds: Medications Acetaminophen (Acetaminophen 325 Mg Tablet) 650 mg PO Q6HP PRN; Protocol PRN Reason: Per Pain Protocol/Fever > 101 Hydrocodone Bitart/Acetaminophen (Hydrocodone/Apap 7.5/325mg Tablet) 1 tab PO Q8HP PRN PRN Reason: Pain Albuterol/Ipratropium (Ipratropium/Albuterol 3 Ml Ampul.Neb) 3 ml NEB Q4HP PRN PRN Reason: Shortness Of Breath Clonazepam (Clonazepam 0.5 Mg Tablet) 0.5 mg PO QHS [facility] Last Admin: 02/22/23 20:48 Dose: 0.5 mg Duloxetine HCl (Duloxetine 30 Mg Capsule) 60 mg PO QDAY [facility] Last Admin: 02/22/23 08:50 Dose: 60 mg Hydralazine HCl (Hydralazine 20 Mg/Ml Vial) 0 mg IV Q2HP PRN PRN Reason: Hypertension Metronidazole (Flagyl) 500 mg in 100 mls @ 100 mls/hr IV Q8 [facility]; Protocol Last Infusion: 02/23/23 06:45 Dose: Infused Potassium Chloride 40 meq/ (Dextrose) 520 mls @ 130 mls/hr IV UD PRN PRN Reason: Potassium < 3 Magnesium Sulfate (Magnesium Sulfate) 2 gm in 50 mls @ 50 mls/hr IV UD PRN PRN Reason: Magnesium </= 1.6 Ampicillin Sodium/Sulbactam (Sodium 1.5 gm/ Sodium Chloride) 50 mls @ 100 mls/hr IV Q6H [facility] Last Infusion: 02/23/23 05:34 Dose: Infused Ondansetron HCl (Ondansetron 4 Mg/2 Ml Vial) 4 mg IV Q4HP PRN PRN Reason: Nausea And Vomiting Pantoprazole Sodium (Pantoprazole 40 Mg Vial) 40 mg IV QAMAC [facility] Last Admin: 02/23/23 06:45 Dose: 40 mg Potassium Chloride (Potassium Chloride 20 Meq Tablet) 20 meq PO QAMCC [facility] Last Admin: 02/22/23 08:11 Dose: 20 meq Potassium Chloride (Potassium Chloride 20 Meq Tablet) 40 meq PO UD PRN PRN Reason: Potssium is 3-3.5 Potassium Chloride (Potassium Chloride 20 Meq Tablet) 40 meq PO UD PRN PRN Reason: Potassium < 3 Sodium Chloride (0.9 % Sodium Chloride 10 Ml Syringe) 10 ml IV Q8 [facility] Last Admin: 02/23/23 06:44 Dose: 10 ml Tamsulosin HCl (Tamsulosin 0.4 Mg Capsule) 0.4 mg PO QDAY [facility] Last Admin: 02/22/23 08:50 Dose: 0.4 mg Vitamin D (Vitamin D3 25 Mcg Tablet) 50 mcg PO DAILY [facility] Last Admin: 02/22/23 15:57 Dose: 50 mcg A/P Narrative A/P Narrative: A: *Colitis w/Diarrhea(mostly related to meds, likely): Undetermined etiology -Diarrhea improved from last admission, also pt on reglan and did get laxative outpt -ESR low *GIB: likely 2/2 colitis -Per discussion with GI in ED who did not feel patient needed colonoscopy at this time -[facility] *Acute blood loss anemia, on chronic: 2/ above -Did receive blood transfusion while at [facility] in January as well *Volume depletion w/Orthostatic hypotension: improving *Hypotension: Resolved in ED with IV fluids. -home ACEI/BB held for past 1-2 days at [facility] for low BP *UTI(Enterococcus): *Thrombocytopenia, chronic: improving *Leukopenia: improving *Electrolyte disorder (Hypocalcemia/Hypomagnesemia/Hypophosphatemia): vit d & iPTH pending *CKD II-III: *h/o CVA's: *Vascular dementia: *Severe protein calorie malnutrition: Muscle and fat loss -prealbumin 8.6 *HTN: Home MIHAI/BB recently held outpatient for low blood pressure *BPH with UR: Cheema placed at [facility] and has not followed up with urology yet *Chronic pain: on norco at home *Generalized weakness/deconditioning: *Anxiety: On clonazepam at home *chronic pain: on norco at home *Dysphagia: *Vit. D Insufficiency: P: -empiric abx per GI -pending stool studies -monitor H&H, prn transfusion -Monitor renal function/UOP -Follow-up chemistry and replete electrolytes as needed, -vit D. supp and d/c with -Dietary consult -hold home ACEI/BB, may not need on d/c either -pending UC sens -dysphagia diet per ST -pt/ot -CM for placement needs -maintain cheema, f/u with urology outpt -f/u with GI/Surgeon outpt -ppx: SCD / ppi Time Spent With Patient Time: Total time spent is greater than 50% in coordination of care (as documented) at patient's floor/unit and/or counseling patient: QUALITY Stroke Symptom Onset Unknown: No VTE Deep Vein Thrombosis/Pulmonary Embolism Present on Admission: No
[2023-02-23] MEDS: POTASSIUM CHLORIDE 20 MEQ TABLET PO SCH (08:22)
[2023-02-23] MEDS: TAMSULOSIN 0.4 MG CAPSULE PO SCH (08:57)
[2023-02-23] MEDS: DULoxetine 30 MG CAPSULE PO SCH (08:57)
[2023-02-23] MEDS: VITAMIN D3 25 MCG TABLET PO SCH (08:58)
[2023-02-27 14:27] LABS: Vit D 1,25 Dihydroxy 11 pg/mL (18-72)
== END 2023-02-23 14:38 | DRG 377 ==
LOC: ED 11:04 → MEDSUR 22:00
PROVIDERS: ADMIT Internal Medicine; ATTEND Internal Medicine